=== PATIENT | male | born 1935 | race Caucasian/White ===

== ENCOUNTER 2017-12-17 07:17 | Emergency (ER) | payer MEDICARE, OTHER ==
--- NOTE | 2017-12-17 07:58 | ER Document Report ---
ED Medical Screen (RME) - General Chief Complaint: Fall Injury Stated Complaint: HEAD INJURY Time Seen by Provider: 12/17/17 07:57 Mode of Arrival: Ambulatory Information source: Patient Notes: Patient presents emergency department with reports that he fell out of his recliner while he was sleeping. Patient is on Eliquis. TRAVEL OUTSIDE OF THE [place] IN LAST 30 DAYS: No - Related Data Allergies/Adverse Reactions: piperacillin sodium [From Zosyn] Allergy (Intermediate, Verified 02/22/17 09:02) Generalized rash tazobactam sodium [From Zosyn] Allergy (Intermediate, Verified 02/22/17 09:02) Generalized rash haloperidol [From Haldol] Allergy (Verified 12/17/17 07:20) lorazepam [Lorazepam] Adverse Reaction (Intermediate, Verified 02/22/17 09:02) Confusion Irritability Past Medical History - Past Medical History Cardiac Medical History: Reports: Hx Atrial Fibrillation, Hx Congestive Heart Failure, Hx Hypercholesterolemia, Hx Hypertension Denies: Hx Coronary Artery Disease, Hx Heart Attack Pulmonary Medical History: Reports: Hx COPD, Hx Respiratory Failure Denies: Hx Asthma, Hx Bronchitis, Hx Pneumonia Neurological Medical History: Denies: Hx Cerebrovascular Accident, Hx Seizures Endocrine Medical History: Reports: Hx Diabetes Mellitus Type 1, Hx Diabetes Mellitus Type 2, Hx Hypothyroidism Renal/ Medical History: Denies: Hx Peritoneal Dialysis Malignancy Medical History: Reports Hx Prostate Cancer GI Medical History: Reports: Hx Gastroesophageal Reflux Disease Musculoskeltal Medical History: Reports Hx Arthritis Psychiatric Medical History: Reports: Hx Depression, Hx Post Traumatic Stress Disorder Past Surgical History: Reports: Hx Cardiac Surgery - pacemaker, Hx Pacemaker - Immunizations Hx Diphtheria, Pertussis, Tetanus Vaccination: No History of Influenza Vaccine for 12/2016 - 05/2017 Season: No Physical Exam - Vital signs Vitals: Temp Pulse Resp BP Pulse Ox 98.2 F 100 18 141/97 H 92 12/17/17 07:12/17/17 07:12/17/17 07:12/17/17 07:12/17/17 07:26 Course - Vital Signs Vital signs: Temp Pulse Resp BP Pulse Ox 98.2 F 100 18 141/97 H 92 12/17/17 07:12/17/17 07:12/17/17 07:12/17/17 07:12/17/17 07:26 Doctor's Discharge - Discharge Referrals: SHIRA JOHANSEN MD [Primary Care Provider] - Follow up as needed
--- NOTE | 2017-12-17 08:45 | RADIOLOGY REPORT (SQ) ---
EXAM DESCRIPTION: CT HEAD WITHOUT COMPLETED DATE/TIME: 12/17/2017 8:23 am REASON FOR STUDY: head injury COMPARISON: CT brain 12/15/2014, 08/02/2015, 02/22/2017 TECHNIQUE: Axial images acquired through the brain without intravenous contrast. Images reviewed wi th bone, brain and subdural windows. Additional sagittal and coronal reconstructions were generated. Images stored on PACS. All CT scanners at this facility use dose modulation, iterative reconstruction, and/or weight based d osing when appropriate to reduce radiation dose to as low as reasonably achievable (ALARA). [facility]: Dose Right [facility]: CareDose [facility]: Dose Right [facility]: Teradose 4D [facility]: SpinTheCam RADIATION DOSE: CT Rad equipment meets quality standard of care and radiation dose reduction techniq ues were employed. CTDIvol: 53.2 mGy. DLP: 1044 mGy-cm. mGy. LIMITATIONS: None. FINDINGS: VENTRICLES: Normal size and contour. CEREBRUM: No CT evidence of acute large territory ischemic change, acute intracranial hemorrhage, mas s effect, or midline shift. Moderate to heavy burden small vessel ischemic change in the hemispheric white matter with old lacunar infarcts in the basal ganglia. CEREBELLUM: No masses. No hemorrhage. No alteration of density. No evidence for acute infarction. EXTRAAXIAL SPACES: No fluid collections. No masses. ORBITS AND GLOBE: No intra- or extraconal masses. Post cataract surgery CALVARIUM: No fracture. PARANASAL SINUSES: No fluid or mucosal thickening. SOFT TISSUES: No mass or hematoma. OTHER: No other significant finding. IMPRESSION: No acute changes EVIDENCE OF ACUTE STROKE: NO. COMMENT: Quality ID # [id number]: Final reports with documentation of one or more dose reduction techniques (e.g., Automated exposure control, adjustment of the mA and/or kV according to patient size, use of iterative reconstruction technique) TECHNICAL DOCUMENTATION: JOB ID: [id number] [employer]- All Rights Reserved Reading location - IP/workstation name: [facility]-[email or web address]
--- NOTE | 2017-12-17 08:48 | RADIOLOGY REPORT (SQ) ---
EXAM DESCRIPTION: CT CERVICAL SPINE WITHOUT COMPLETED DATE/TIME: 12/17/2017 8:23 am REASON FOR STUDY: fell out of chair fell out of chair left-sided neck pain after fall COMPARISON: 11/04/2015 CT cervical spine TECHNIQUE: Axial images acquired through the cervical spine without intravenous contrast. Images re viewed with lung, soft tissue and bone windows. Reconstructed coronal and sagittal MPR images review ed. Images stored on PACS. All CT scanners at this facility use dose modulation, iterative reconstruction, and/or weight based d osing when appropriate to reduce radiation dose to as low as reasonably achievable (ALARA). [facility]: Dose Right [facility]: CareDose [facility]: Dose Right [facility]: Teradose 4D [facility]: 36Kr RADIATION DOSE: CT Rad equipment meets quality standard of care and radiation dose reduction techniq ues were employed. CTDIvol: 24.1 mGy. DLP: 455 mGy-cm. mGy. LIMITATIONS: None. FINDINGS: ALIGNMENT: Anatomic. MINERALIZATION: Normal. VERTEBRAL BODIES: No fractures or dislocation. DISCS: Multilevel disc space narrowing with osteophytes. FACETS, LATERAL MASSES, POSTERIOR ELEMENTS: Facet arthropathy. No fractures. No dislocation. No ac [place] findings. HARDWARE: None in the spine. VISUALIZED RIBS: No fractures. LUNG APICES AND SOFT TISSUES: No significant or acute findings. OTHER: No other significant finding. IMPRESSION: CHRONIC DEGENERATIVE CHANGES. NO ACUTE FINDINGS. TECHNICAL DOCUMENTATION: JOB ID: [id number] Quality ID # [id number]: Final reports with documentation of one or more dose reduction techniques (e.g., Au tomated exposure control, adjustment of the mA and/or kV according to patient size, use of iterative reconstruction technique) 2010 [employer]- All Rights Reserved Reading location - IP/workstation name: [facility]-[email or web address]
--- NOTE | 2017-12-17 09:32 | ER Document Report ---
ED Fall - General Chief Complaint: Fall Injury Stated Complaint: HEAD INJURY Time Seen by Provider: 12/17/17 07:57 Mode of Arrival: Ambulatory Information source: Patient TRAVEL OUTSIDE OF THE [place] IN LAST 30 DAYS: No - HPI Notes: Patient is a 82-year-old male that presents to the emergency department for chief complaint of head injury. Patient fell asleep in a chair and fell forward hitting his head on the wall. He does not remember falling out of the chair but has had similar episodes in the past. His states he has bad sleep apnea and frequently falls asleep mid conversation. She states he has had falls out of the chair previously that resulted in rib fracture. Patient has no complaints currently. He denies vision changes, nausea, vomiting, headache, numbness and weakness. He states his last tetanus vaccination was less than 5 years ago. Past Medical History: COPD Past Surgical History: Reviewed in chart Social History: Denies drugs alcohol and tobacco Family History: Reviewed and noncontributory for presenting illness Allergies: Reviewed, see documented allergy list. REVIEW OF SYSTEMS: CONSTITUTIONAL : No fever No chills No diaphoresis No recent illness EENT: No vision changes No congestion No sore throat CARDIOVASCULAR: No chest pain No palpitations RESPIRATORY: No shortness of breath No cough No difficulty breathing GASTROINTESTINAL: No abdominal pain No nausea No vomiting No diarrhea GENITOURINARY: No dysuria No hematuria No difficulty urinating MUSCULOSKELETAL: No back pain No leg pain No arm pain SKIN: No rashes Eyebrow laceration, hand laceration LYMPHATIC: No swollen, enlarged glands. NEUROLOGICAL: No lightheadedness No headache No weakness No paresthesias PSYCHIATRIC: No anxiety No depression PHYSICAL EXAMINATION: Vital signs reviewed, nursing noted reviewed. GENERAL: Well-appearing, well-nourished and in no acute distress. HEAD: Atraumatic, normocephalic. EYES: Eyes appear normal, extraocular movements intact, sclera anicteric, conjunctiva are normal. ENT: nares patent, oropharynx clear without exudates. Moist mucous membranes. NECK: Normal range of motion, supple without lymphadenopathy LUNGS: Breath sounds clear to auscultation bilaterally and equal. No wheezes rales or rhonchi. HEART: Regular rate and rhythm without murmurs ABDOMEN: Soft, nontender, normoactive bowel sounds. No rebound, guarding, or rigidity. No masses appreciated. EXTREMITIES: Nontender, good range of motion, no pitting or edema. NEUROLOGICAL: No focal neurological deficits. Moves all extremities spontaneously Motor and sensory grossly intact on exam. PSYCH: Normal mood, normal affect. SKIN: Warm, Dry, normal turgor. 0.5 cm partial-thickness linear well approximated right eyebrow laceration, 2.0 cm linear partial-thickness well approximated right eyebrow laceration, dorsal right hand between first and second webspace skin tear with no active bleeding - Related data Allergies/Adverse Reactions: piperacillin sodium [From Zosyn] Allergy (Intermediate, Verified 02/22/17 09:02) Generalized rash tazobactam sodium [From Zosyn] Allergy (Intermediate, Verified 02/22/17 09:02) Generalized rash haloperidol [From Haldol] Allergy (Verified 12/17/17 07:20) lorazepam [Lorazepam] Adverse Reaction (Intermediate, Verified 02/22/17 09:02) Confusion Irritability Past Medical History - General Information source: Patient - Social History Smoking Status: Never Smoker Family History: Reviewed & Not Pertinent, CVA Patient has suicidal ideation: No Patient has homicidal ideation: No - Past Medical History Cardiac Medical History: Reports: Hx Atrial Fibrillation, Hx Congestive Heart Failure, Hx Hypercholesterolemia, Hx Hypertension Denies: Hx Coronary Artery Disease, Hx Heart Attack Pulmonary Medical History: Reports: Hx COPD, Hx Respiratory Failure Denies: Hx Asthma, Hx Bronchitis, Hx Pneumonia Neurological Medical History: Denies: Hx Cerebrovascular Accident, Hx Seizures Endocrine Medical History: Reports: Hx Diabetes Mellitus Type 1, Hx Diabetes Mellitus Type 2, Hx Hypothyroidism Renal/ Medical History: Denies: Hx Peritoneal Dialysis Malignancy Medical History: Reports Hx Prostate Cancer GI Medical History: Reports: Hx Gastroesophageal Reflux Disease Musculoskeletal Medical History: Reports Hx Arthritis Psychiatric Medical History: Reports: Hx Depression, Hx Post Traumatic Stress Disorder Past Surgical History: Reports: Hx Cardiac Surgery - pacemaker, Hx Pacemaker - Immunizations Hx Diphtheria, Pertussis, Tetanus Vaccination: No Hx Pneumococcal Vaccination: 03/26/09 Review of Systems - Review of Systems Notes: Dictated Physical Exam - Vital signs Vitals: Temp Pulse Resp BP Pulse Ox 98.2 F 100 18 141/97 H 92 12/17/17 07:26 12/17/17 07:26 12/17/17 07:26 12/17/17 07:26 12/17/17 07:26 - Notes Notes: Dictated Course - Re-evaluation Re-evalutation: 12/17/17 09:30 Vitals reviewed and stable. Patient awake and in no acute distress. He has no focal neurologic deficits. CT brain and cervical spine show no acute injury. His tetanus is up to date. He denies any pain and does not want any medicine for pain. The skin tear on his right hand is not bleeding and was cleaned and dressed by nursing. His 2 lacerations to the right eyebrow are well approximated and not bleeding. They were treated with Dermabond, see procedure note. Patient counseled on closed head injury and return precautions. I do not believe he had a syncopal event requiring further cardiac evaluation. He is able to ambulate without difficulty. He will return for new or worsening symptoms. Discharged home in stable condition. Cervical Spine CT 12/17/17 07:57 IMPRESSION: CHRONIC DEGENERATIVE CHANGES. NO ACUTE FINDINGS. Head CT 12/17/17 07:57 IMPRESSION: No acute changes EVIDENCE OF ACUTE STROKE: NO. - Vital Signs Vital signs: Temp Pulse Resp BP Pulse Ox 98.2 F 100 18 141/97 H 92 12/17/17 07:26 12/17/17 07:26 12/17/17 07:26 12/17/17 07:26 12/17/17 07:26 Discharge - Discharge Clinical Impression: Closed head injury Qualifiers: Encounter type: initial encounter Qualified Code(s): S09.90XA - Unspecified injury of head, initial encounter Laceration of eyebrow, right Qualifiers: Encounter type: initial encounter Qualified Code(s): S01.111A - Laceration without foreign body of right eyelid and periocular area, initial encounter Skin tear of right hand without complication Qualifiers: Encounter type: initial encounter Qualified Code(s): S61.411A - Laceration without foreign body of right hand, initial encounter Condition: Stable Disposition: HOME, SELF-CARE Instructions: Head Injury Precautions ([facility]), Skin Tear ([facility]) Additional Instructions: Please return to the emergency department if you have any worsening, or concern of your symptoms. Please return to the emergency department if you develop chest pain, difficulty breathing, severe abdominal pain, or ongoing vomiting. Please follow-up with your primary care physician in 2-3 days and any other recommended physicians. If prescribed, take all medications as directed. If you have any questions or concerns do not hesitate to return the emergency department for evaluation. Please return immediately if you have any vision changes, headache, vomiting, numbness or weakness or difficulty speaking Referrals: SHIRA JOHANSEN MD [Primary Care Provider] - Follow up as needed
[2017-12-17 09:42] VITALS: BP 147/84
== END 2017-12-17 09:38 | disposition home or self-care (01) ==
LOC: ER 07:17
DX: S09.90XA Unspecified injury of head, initial encounter (principal); S01.111A Laceration without foreign body of right eyelid and periocular area, initial encounter; S61.411A Laceration without foreign body of right hand, initial encounter; W07.XXXA Fall from chair, initial encounter; J44.9 Chronic obstructive pulmonary disease, unspecified; I48.91 Unspecified atrial fibrillation; I50.9 Heart failure, unspecified; E78.00 Pure hypercholesterolemia, unspecified; I11.0 Hypertensive heart disease with heart failure; E11.9 Type 2 diabetes mellitus without complications; Z85.46 Personal history of malignant neoplasm of prostate
CPT/HCPCS: 70450; 72125; 99283

== ENCOUNTER 2018-04-08 18:09 | Inpatient (IN) | payer MEDICARE, OTHER ==
[2018-04-08] MEDS ORDERED: DILTIAZEM HCL INJ 25 MG/5 ML VIAL IV ONE (18:41)
[2018-04-08 18:52] LABS: HEMATOCRIT 38.5 % (37.9-51.0); HEMOGLOBIN 12.9 g/dL (13.5-17.0); INTERNATIONAL RATION (INR) 1.44; MEAN CORPUSCULAR HEMOGLOBIN 27.1 pg (27.0-33.4); MEAN CORPUSCULAR HGB CONC 33.5 g/dL (32.0-36.0); MEAN CORPUSCULAR VOLUME 81 fl (80-97); PLATELET COUNT 272 10^3/uL (150-450); PROTHROMBIN TIME 18.2 SEC (11.4-15.4); RED BLOOD COUNT 4.77 10^6/uL (4.35-5.55); RED CELL DISTRIBUTION WIDTH 14.1 % (11.5-14.0); WHITE BLOOD COUNT 28.7 10^3/uL (4.0-10.5)
[2018-04-08 18:59] LABS: ALANINE AMINOTRANSFERASE 30 U/L (21-72); ALBUMIN 4.4 g/dL (3.5-5.0); ALKALINE PHOSPHATASE 136 U/L (38-126); ANION GAP 15 (5-19); ASPARTATE AMINO TRANSFERASE 37 U/L (17-59); BILIRUBIN,DIRECT 0.4 mg/dL (0.0-0.4); BLOOD UREA NITROGEN 21 mg/dL (7-20); CALCIUM 9.8 mg/dL (8.4-10.2); CARBON DIOXIDE 21 mmol/L (22-30); CHLORIDE 95 mmol/L (98-107); GLUCOSE 211 mg/dL (75-110); POTASSIUM 4.4 mmol/L (3.6-5.0); SODIUM 131.4 mmol/L (137-145); TOTAL PROTEIN 7.6 g/dL (6.3-8.2)
[2018-04-08] MEDS: DILTIAZEM HCL/D5W 125 MG/125 ML RTUINJ IV PRN (19:04)
[2018-04-08] MEDS ORDERED: ONDANSETRON HCL INJ/PF 4 MG/2 ML SDV ONE (19:06)
[2018-04-08] MEDS ORDERED: ONDANSETRON HCL INJ/PF 4 MG/2 ML SDV IV ONE (19:10)
[2018-04-08 19:19] LABS: ABSOLUTE LYMPHOCYTES# (MANUAL) 1.7 10^3/uL (0.5-4.7); BASOPHILS % (MANUAL) 0 % (0-2); EOSINOPHILS % (MANUAL) 0 % (0-6); LYMPHOCYTES % (MANUAL) 6 % (13-45); MONOCYTES % (MANUAL) 7 % (3-13); PLATELET COMMENT ADEQUATE; SEGMENTED NEUTROPHILS % (MAN) 87 % (42-78); TOTAL CELLS COUNTED 100
[2018-04-08] MEDS ORDERED: AZITHROMYCIN INJ 500 MG VIAL IV ONE (19:22)
[2018-04-08] MEDS ORDERED: CEFTRIAXONE INJ 1000 MG VIAL IV ONE (19:23)
[2018-04-08 19:31] LABS: VENOUS BLOOD BASE EXCESS -1.2 mmol/L; VENOUS BLOOD HCO3 20.9 mmol/L (20-32); VENOUS BLOOD PCO2 28.4 mmHg (35-63); VENOUS BLOOD PH 7.49 (7.30-7.42)
[2018-04-08] MEDS ORDERED: MEROPENEM 1 GM VIAL IV ONE (19:50)
[2018-04-08] MEDS ORDERED: ERTAPENEM SODIUM INJ 1 GM VIAL IV ONE (19:59)
--- NOTE | 2018-04-08 20:01 | ER Document Report ---
ED General - General Chief Complaint: Breathing Difficulty Stated Complaint: DIFFICULTY BREATHING Time Seen by Provider: 04/08/18 18:31 Notes: Patient is a 82-year-old male with CHF, atrial fibrillation, COPD that presents to the emergency department for chief complaint of shortness of breath and difficulty breathing. Patient states that this started earlier this evening, became progressively worse to the point that they called EMS to bring him to the emergency department. He wears home oxygen 2-3 L at home, but that was not helping his symptoms, he also wears CPAP at night. Earlier in the week he was having some nausea and vomiting, that has since resolved, but he has had this cough and feeling more short of breath. He has had aspiration pneumonia not long ago. Denies noting any fevers at home, chills, abdominal pain, chest pain, leg swelling, or any other complaints at this time. Past Medical History: COPD, CHF, atrial fibrillation, obstructive sleep apnea, hypertension Past Surgical History: Denies pertinent or recent surgical history Social History: Denies tobacco, alcohol or drug use. Family History: Reviewed and noncontributory for presenting illness Allergies: Reviewed, see documented allergy list. REVIEW OF SYSTEMS: Other than noted above, the 12 point review of systems was reviewed with the patient and were negative, all pertinent findings are included in the HPI. PHYSICAL EXAMINATION: Vital signs reviewed, nursing noted reviewed. GENERAL: Elderly male, in acute respiratory distress HEAD: Atraumatic, normocephalic. EYES: Eyes appear normal, extraocular movements intact, sclera anicteric, conjun ctiva are normal. ENT: nares patent, oropharynx clear without exudates. Moist mucous membranes. NECK: Normal range of motion, supple without lymphadenopathy LUNGS: Diminished lung sounds, crackles noted on the right base, acute respiratory distress, accessory muscle use. HEART: Heart rate tachycardic, irregular rhythm, no audible murmur. ABDOMEN: Soft, nontender, normoactive bowel sounds. No rebound, guarding, or rigidity. No masses appreciated. EXTREMITIES: Nontender, good range of motion, no pitting or edema. NEUROLOGICAL: No focal neurological deficits. Moves all extremities spon taneously Motor and sensory grossly intact on exam. PSYCH: Distressed, but answering questions appropriately. SKIN: Warm, Dry, normal turgor, no rashes or lesions noted on exposed skin TRAVEL OUTSIDE OF THE [place] IN LAST 30 DAYS: No - Related Data Allergies/Adverse Reactions: piperacillin sodium [From Zosyn] Allergy (Intermediate, Verified 02/22/17 09:02) Generalized rash tazobactam sodium [From Zosyn] Allergy (Intermediate, Verified 02/22/17 09:02) Generalized rash haloperidol [From Haldol] Allergy (Verified 12/17/17 07:20) lorazepam [Lorazepam] Adverse Reaction (Intermediate, Verified 02/22/17 09:02) Confusion Irritability Past Medical History - Social History Smoking Status: Unknown if Ever Smoked Family History: Reviewed & Not Pertinent, CVA Patient has suicidal ideation: No Patient has homicidal ideation: No - Past Medical History Cardiac Medical History: Reports: Hx Atrial Fibrillation, Hx Congestive Heart Failure, Hx Hypercholesterolemia, Hx Hypertension Denies: Hx Coronary Artery Disease, Hx Heart Attack Pulmonary Medical History: Reports: Hx COPD, Hx Respiratory Failure Denies: Hx Asthma, Hx Bronchitis, Hx Pneumonia Neurological Medical History: Denies: Hx Cerebrovascular Accident, Hx Seizures Endocrine Medical History: Reports: Hx Diabetes Mellitus Type 1, Hx Diabetes Mellitus Type 2, Hx Hypothyroidism Renal/ Medical History: Denies: Hx Peritoneal Dialysis Malignancy Medical History: Reports Hx Prostate Cancer GI Medical History: Reports: Hx Gastroesophageal Reflux Disease Musculoskeletal Medical History: Reports Hx Arthritis Psychiatric Medical History: Reports: Hx Depression, Hx Post Traumatic Stress Disorder Past Surgical History: Reports: Hx Cardiac Surgery - pacemaker, Hx Pacemaker - Immunizations Hx Diphtheria, Pertussis, Tetanus Vaccination: No Hx Pneumococcal Vaccination: 03/26/09 Physical Exam - Vital signs Vitals: Temp Pulse Resp BP Pulse Ox 98.2 F 140 H 18 116/83 87 L 04/08/18 18:23 04/08/18 18:23 04/08/18 18:23 04/08/18 18:23 04/08/18 18:23 Course - Re-evaluation Re-evalutation: Patient seen and examined vital signs reviewed. Laboratory data and imaging were ordered as appropriate for the patient's presenting symptoms and complaint, with consideration of any critical or life threatening conditions that may be associated with their obtained history and exam as noted above. Patient was treated with BiPAP therapy, as the patient was feeling on nasal cannula, he was hypoxic on 4 L by nasal cannula, which is more than his baseline home oxygen, he was treated empirically with broad-spectrum antibiotics, initially with azithromycin and Rocephin, but patient started to have a localized reaction to the Rocephin, was discontinued and switched to ertapenem. Results were reviewed when available and demonstrated significant leukocytosis of 28,000, chest x-ray consistent with pneumonia in the right lung, lactic acid was 1.7, renal function was normal and at baseline, mild hyponatremia of 131 Patient was treated with IV bolus of Cardizem, and infusion, for his atrial fibrillation with rapid ventricular response, patient continued to be tachycardic, despite increasing the dosing on the Cardizem infusion, and therefore I ordered a dose of IV digoxin, 500 mcg, to help his heart rate. The patient was re-evaluated and was improving but still on BiPAP, and still had mild increased work of breathing, but seemed improved from his initial presentation Evaluation was most consistent with sepsis, likely secondary to pneumonia, acute on chronic respiratory failure with hypoxia, leukocytosis, and hyponatremia. Results were discussed with the patient at this point after careful consideration I feel that that patient should be admitted to the hospital. This was discussed with the patient that it is in the best interest for their care to be admitted for further evaluation and management. Patient agreed with this plan of care. A call was placed to the admitted physician, Dr. Cruz who graciously accepted the patient onto their service. *Note is created using voice recognition software and may contain spelling, sy ntax or grammatical errors. Laboratory 04/08/18 04/08/18 04/08/18 18:34 18:34 18:34 WBC 28.7 H RBC 4.77 Hgb 12.9 L Hct 38.5 MCV 81 MCH 27.1 MCHC 33.5 RDW 14.1 H Plt Count 272 Total Counted 100 Seg Neutrophils % Not Reportable Seg Neuts % (Manual) 87 H Lymphocytes % Not Reportable Lymphocytes % (Manual) 6 L Monocytes % Not Reportable Monocytes % (Manual) 7 Eosinophils % Not Reportable Eosinophils % (Manual) 0 Basophils % Not Reportable Basophils % (Manual) 0 Absolute Neutrophils Not Reportable Abs Neuts (Manual) 25.0 H Absolute Lymphocytes Not Reportable Abs Lymphs (Manual) 1.7 Absolute Monocytes Not Reportable Abs Monocytes (Manual) 2.0 H Absolute Eosinophils Not Reportable Absolute Eos (Manual) 0.0 Absolute Basophils Not Reportable Abs Basophils (Manual) 0.0 Platelet Comment ADEQUATE PT 18.2 H INR 1.44 VBG pH VBG pCO2 VBG HCO3 VBG Base Excess Sodium 131.4 L Potassium 4.4 Chloride 95 L Carbon Dioxide 21 L Anion Gap 15 BUN 21 H Creatinine 0.99 Est GFR ( Amer) > 60 Est GFR (Non-Af Amer) > 60 Glucose 211 H Lactic Acid Calcium 9.8 Total Bilirubin 1.0 Direct Bilirubin 0.4 Neonat Total Bilirubin Not Reportable Neonat Direct Bilirubin Not Reportable Neonat Indirect Bili Not Reportable AST 37 ALT 30 Alkaline Phosphatase 136 H Troponin I Total Protein 7.6 Albumin 4.4 04/08/18 04/08/18 04/08/18 18:34 19:10 19:10 WBC RBC Hgb Hct MCV MCH MCHC RDW Plt Count Total Counted Seg Neutrophils % Seg Neuts % (Manual) Lymphocytes % Lymphocytes % (Manual) Monocytes % Monocytes % (Manual) Eosinophils % Eosinophils % (Manual) Basophils % Basophils % (Manual) Absolute Neutrophils Abs Neuts (Manual) Absolute Lymphocytes Abs Lymphs (Manual) Absolute Monocytes Abs Monocytes (Manual) Absolute Eosinophils Absolute Eos (Manual) Absolute Basophils Abs Basophils (Manual) Platelet Comment PT INR VBG pH 7.49 H VBG pCO2 28.4 L VBG HCO3 20.9 VBG Base Excess -1.2 Sodium Potassium Chloride Carbon Dioxide Anion Gap BUN Creatinine Est GFR ( Amer) Est GFR (Non-Af Amer) Glucose Lactic Acid 1.7 Calcium Total Bilirubin Direct Bilirubin Neonat Total Bilirubin Neonat Direct Bilirubin Neonat Indirect Bili AST ALT Alkaline Phosphatase Troponin I 0.014 Total Protein Albumin Chest X-Ray 04/08/18 18:40 IMPRESSION: No definite acute disease. No significant interval change. - Vital Signs Vital signs: Temp Pulse Resp BP Pulse Ox 98.2 F 140 H 31 H 131/102 H 93 04/08/18 18:23 04/08/18 18:23 04/08/18 20:01 04/08/18 20:00 04/08/18 20:01 - Laboratory Result Diagrams: 04/08/18 18:34 04/08/18 18:34 Laboratory results interpreted by me: 04/08/18 04/08/18 04/08/18 18:34 18:34 18:34 WBC 28.7 H Hgb 12.9 L RDW 14.1 H Seg Neuts % (Manual) 87 H Lymphocytes % (Manual) 6 L Abs Neuts (Manual) 25.0 H Abs Monocytes (Manual) 2.0 H PT 18.2 H VBG pH VBG pCO2 Sodium 131.4 L Chloride 95 L Carbon Dioxide 21 L BUN 21 H Glucose 211 H Alkaline Phosphatase 136 H 04/08/18 19:10 WBC Hgb RDW Seg Neuts % (Manual) Lymphocytes % (Manual) Abs Neuts (Manual) Abs Monocytes (Manual) PT VBG pH 7.49 H VBG pCO2 28.4 L Sodium Chloride Carbon Dioxide BUN Glucose Alkaline Phosphatase - EKG Interpretation by Me Additional EKG results interpreted by me: EKG demonstrates atrial fibrillation with a rapid ventricular response of 139 bpm, normal axis, QTC 463 ms, no evidence of acute ischemia on this EKG, this is compared with prior EKG from 08/09/2015, without significant change. Critical Care Note - Critical Care Note Total time excluding time spent on procedures (mins): 45 Comments: Critical care time 45 minutes exclusive from separate billable procedures for a patient requiring complex medical decision making, and high potential for clinical deterioration. In a patient with acute on chronic respiratory failure requiring BiPAP therapy, Cardizem infusion, and IV digoxin to control his heart rate.. Time spent obtaining history from patient or surrogate, discussions with consultants, development of treatment plan with patient or surrogate, evaluation of patient's response to treatment, examination of patient, ordering and performing treatments and interventions, ordering and review of laboratory studies, re-evaluation of patient's condition, ordering and review of radiographic studies and review of old charts Discharge - Discharge Clinical Impression: Acute and chronic respiratory failure with hypoxia, Atrial fibrillation with RVR, Hyponatremia Sepsis Qualifiers: Sepsis type: sepsis due to unspecified organism Qualified Code(s): A41.9 - Sepsis, unspecified organism Community acquired pneumonia Qualifiers: Laterality: right Lung location: unspecified part of lung Qualified Code(s): J18.9 - Pneumonia, unspecified organism Leukocytosis Qualifiers: Leukocytosis type: unspecified Qualified Code(s): D72.829 - Elevated white blood cell count, unspecified Condition: Serious Disposition: ADMITTED INPATIENT Admitting Provider: Hospitalist - Dr. Cruz Unit Admitted: [facility]
[2018-04-08] MEDS ORDERED: MORPHINE SULFATE 10 MG/ML INJ IV ONE (20:06)
[2018-04-08] MEDS ORDERED: DIGOXIN INJ 0.5 MG/2 ML AMPULE IV ONE (20:15)
--- NOTE | 2018-04-08 20:24 | RADIOLOGY REPORT (SQ) ---
EXAM DESCRIPTION: XR CHEST 1 VIEW COMPLETED DATE/TME: 04/08/2018 18:40 CLINICAL HISTORY: 82 years, Male, SHORTNESS OF BREATH Compared to chest x-ray dated 02/23/2017. Findings: Heart is moderately enlarged. Aortic arch is calcified. Left chest single lead pacemaker. Bibasilar fibrotic changes. No pneumothorax. No acute consolidations. IMPRESSION: No definite acute disease. No significant interval change.
[2018-04-08] MEDS ORDERED: NORMAL SALINE 1000 ML 1,000 ML IV ONE (20:47)
[2018-04-08] MEDS ORDERED: NICOTINE 21 MG/24 HR PATCH.TD24 TD PRN (20:49)
[2018-04-08] MEDS ORDERED: ACETAMINOPHEN 650 MG SUPP.RECT PR PRN (20:49)
[2018-04-08] MEDS ORDERED: ACETAMINOPHEN 325 MG TABLET PO PRN (20:49)
[2018-04-08] MEDS ORDERED: MAG HYDROX/AL HYDROX/SIMETH SUSP 30 ML UDCUP PO PRN (20:49)
[2018-04-08] MEDS ORDERED: MAGNESIUM HYDROXIDE SUSP 30 ML UDCUP PO PRN (20:49)
[2018-04-08] MEDS ORDERED: MORPHINE SULFATE 10 MG/ML INJ IV PRN ×2 (20:49)
[2018-04-08] MEDS ORDERED: NITROGLYCERIN 0.4 MG/TAB 25 TAB/BOTTLE SL PRN (20:49)
[2018-04-08] MEDS ORDERED: ONDANSETRON HCL INJ/PF 4 MG/2 ML SDV IV PRN (20:58)
[2018-04-08] MEDS ORDERED: ONDANSETRON 4 MG TAB.RAPDIS PO PRN (20:58)
[2018-04-08] MEDS ORDERED: DIPHENHYDRAMINE HCL 50 MG/ML VIAL IV ONE (20:59)
[2018-04-08] MEDS ORDERED: ERTAPENEM SODIUM INJ 1 GM VIAL IV SCH (21:00)
[2018-04-08] MEDS: MORPHINE SULFATE 10 MG/ML INJ IV PRN ×2 (21:19→23:21)
[2018-04-08] MEDS: BUDESONIDE NEB 0.5 MG/2 ML AMPUL NEB SCH (21:25)
[2018-04-08] MEDS: ACETYLCYSTEINE 20% SOLN 800 MG/4 ML VIAL.NEB NEB SCH (21:45)
[2018-04-08] MEDS: LEVOFLOXACIN 750 MG/D5W RTU 750 MG/150 ML RTUPB IV SCH (21:45)
[2018-04-08] MEDS ORDERED: HEPARIN SOD (PORCINE) 5,000 UNIT/ML 1 ML SYRINGE SUBCUT SCH (22:00)
[2018-04-08 22:45] LABS: CREATINE KINASE MB 4.17 ng/mL (<4.55); TROPONIN I 0.018 ng/mL
[2018-04-08] MEDS: LEVALBUTEROL HCL NEB 1.25 MG/3 ML AMPUL NEB SCH (23:21)
[2018-04-08] MEDS: METHYLPREDNISOLONE INJ 40 MG/1 ML SDV IV SCH (23:21)
[2018-04-08] MEDS: IPRATROPIUM BROMIDE 0.02% NEB 0.5 MG/2.5 ML AMPUL NEB SCH (23:21)
--- NOTE | 2018-04-09 00:15 | EKG REPORT ---
SEVERITY:- ABNORMAL ECG - ATRIAL FIBRILLATION, V-RATE 108-165 REPOLARIZATION ABNORMALITY, PROB RATE RELATED : Confirmed by: Cherelle Grijalva 09-Apr-2018 00:14:24
[2018-04-09] MEDS ORDERED: CETIRIZINE 10 MG TABLET PO PRN (00:44)
--- NOTE | 2018-04-09 01:37 | PDOC H&P ---
History of Present Illness Admission Date/PCP: SHIRA JOHANSEN MD Patient complains of: Dyspnea History of Present Illness: SIMBA NARAYANAN is a 82 year old male who presented to the emergency room with acute onset progressively worsening dyspnea beginning earlier this evening and worsening to the point of severe at home before calling EMS. He admits that he began having some shortness of breath which progressed to being severe dyspnea at home with associated symptoms of a nonproductive cough, intermittent nausea and occasional vomiting for the last several days. He denies having fever, chills, chest pain, palpitations and edema. He wears oxygen at 2-3 L/min via nasal cannula at home at all times and uses CPAP at night but he received no relief with the use of oxygen today. He admits similar prior episodes due to his COPD, atrial fibrillation or CHF. He has not identified any other aggravating or ameliorating factors for his dyspnea. In the emergency room he was found to have acute respiratory failure with hypoxia requiring the use of BiPAP to maintain an adequate oxygenation. Additionally he was noted to have atrial fibrillation with a rapid ventricular response in the 160s. He was also found to have a 28,000 white blood count. With these findings the patient was admitted to [facility] for further evaluation and treatment. Past Medical History Cardiac Medical History: Reports: Atrial Fibrillation, Congestive Heart Failure, Hyperlipidema, Hypertension Denies: Coronary Artery Disease, DVT, Myocardial Infarction, Pulmonary Embolism Pulmonary Medical History: Reports: Chronic Obstructive Pulmonary Disease (COPD), Respiratory Failure, Sleep Apnea Denies: Asthma, Bronchitis, Pneumonia EENT Medical History: Reports: None Neurological Medical History: Denies: Hemorrhagic CVA, Ischemic CVA, Seizures Endocrine Medical History: Reports: Diabetes Mellitus Type 2, Hypothyroidism Denies: Diabetes Mellitus Type 1, Hyperthyroidism Renal/ Medical History: Denies: Chronic Kidney Disease, Nephrolithiasis Malignancy Medical History: Reports: None GI Medical History: Reports: Gastroesophageal Reflux Disease Denies: Cirrhosis, Hepatitis Musculoskeltal Medical History: Reports: Arthritis Denies: Gout Skin Medical History: Denies: Eczema, Psoriasis Psychiatric Medical History: Reports: Depression, Post Traumatic Stress Disorder, Tobacco Dependency Denies: Alcohol Dependency, Substance Abuse Traumatic Medical History: Reports: None Hematology: Denies: Anemia, Bleeding Tendencies Infectious Medical History: Reports: None Past Surgical History Past Surgical History: Reports: Pacemaker Social History Information Source: Patient Lives with: Spouse/Significant other Smoking Status: Former Smoker Frequency of Alcohol Use: None Hx Recreational Drug Use: No Drugs: None Hx Prescription Drug Abuse: No - Advance Directive Resuscitation Status: Full Code Surrogate healthcare decision maker:: Family History Family History: CVA Parental Family History Reviewed: Yes Children Family History Reviewed: No Sibling(s) Family History Reviewed.: Yes Medication/Allergy Home Medications: Apixaban [Eliquis 5 mg Tablet] 5 mg PO BID 04/08/18 Bupropion HCl [Bupropion HCl Sr] 75 mg PO QPM 04/08/18 Bupropion HCl [Wellbutrin Xl 150 mg 24hr Tablet] 150 mg PO DAILY 04/08/18 Cetirizine HCl [Zyrtec 10 mg Tablet] 10 mg PO DAILYP PRN 04/08/18 Hydrocodone/Acetaminophen [Trent 5-325 mg Tablet] 1 tab PO TIDP PRN 04/08/18 Levothyroxine Sodium [Synthroid 0.15 mg Tablet] 150 mcg PO Q6AM 04/08/18 Lisinopril [Prinivil 5 mg Tablet] 5 mg PO DAILY 04/08/18 Metformin HCl [Glucophage 500 mg Tablet] 1,000 mg PO DAILY 04/08/18 Metoprolol Tartrate [Lopressor 25 mg Tablet] 25 mg PO Q12 04/08/18 Omeprazole 20 mg PO DAILY 04/08/18 Sertraline HCl [Zoloft] 100 mg PO DAILY 04/08/18 Simvastatin [Zocor 20 mg Tablet] 20 mg PO QHS 04/08/18 Tiotropium [place] [Spiriva Handihaler 5 Cap/Kit (18 Mcg/Cap)] 1 cap IH DAILY 04/08/18 Vit C/E/Zn/Coppr/Lutein/Zeaxan [Preservision Areds 2 Softgel] 2 cap PO DAILY 04/08/18 Allergies/Adverse Reactions: piperacillin sodium [From Zosyn] Allergy (Intermediate, Verified 02/22/17 09:02) Generalized rash tazobactam sodium [From Zosyn] Allergy (Intermediate, Verified 02/22/17 09:02) Generalized rash haloperidol [From Haldol] Allergy (Verified 12/17/17 07:20) lorazepam [Lorazepam] Adverse Reaction (Intermediate, Verified 02/22/17 09:02) Confusion Irritability Review of Systems Constitutional: PRESENT: weight loss. ABSENT: chills, fever(s) Eyes: ABSENT: visual disturbances, other - Eye pain Ears: ABSENT: hearing changes, other - Ear pain Nose, Mouth, and Throat: ABSENT: mouth pain, sore throat Cardiovascular: PRESENT: as per HPI, dyspnea on exertion. ABSENT: chest pain, edema, palpitations Respiratory: PRESENT: as per HPI, cough, dyspnea. ABSENT: hemoptysis, sputum Gastrointestinal: PRESENT: as per HPI, nausea, vomiting, other - Anorexia for se veral weeks. ABSENT: abdominal pain, constipation, diarrhea Genitourinary: ABSENT: dysuria, hematuria Musculoskeletal: PRESENT: back pain - Chronic. ABSENT: deformity, joint swelling Integumentary: ABSENT: pruritus, rash Neurological: ABSENT: confusion, convulsions, memory loss Psychiatric: ABSENT: anxiety, depression Endocrine: ABSENT: cold intolerance, heat intolerance Hematologic/Lymphatic: PRESENT: easy bleeding - On blood thinners, easy bruising - On blood thinners Physical Exam Vital Signs: Temp Pulse Resp BP Pulse Ox 98.2 F 140 H 18 116/83 87 L 04/08/18 18:23 04/08/18 18:23 04/08/18 18:23 04/08/18 18:23 04/08/18 18:23 Intake & Output 04/06/18 04/07/18 04/08/18 23:59 23:59 23:59 Weight 90.718 kg General appearance: PRESENT: no acute distress, cooperative, other - On BiPAP Head exam: PRESENT: atraumatic, normocephalic Eye exam: PRESENT: conjunctiva pink, EOMI. ABSENT: scleral icterus Ear exam: PRESENT: normal external ear exam. ABSENT: bleeding, drainage Mouth exam: PRESENT: dry mucosa, neck supple Neck exam: ABSENT: JVD, thyromegaly, tracheal deviation Respiratory exam: PRESENT: decreased breath sounds - Decreased breath sounds throughout all gordon, prolonged expiratory phas - Mildly prolonged expiratory phase, symmetrical, tachypnea, wheezes - Expiratory, other - On BiPAP Cardiovascular exam: PRESENT: clicks, gallop, irregular rhythm - irregularly irregular rate and rhythm, rubs, tachycardia Pulses: PRESENT: normal radial pulses, normal dorsalis pedis pul Vascular exam: PRESENT: normal capillary refill. ABSENT: pallor GI/Abdominal exam: PRESENT: normal bowel sounds, soft Rectal exam: PRESENT: deferred Extremities exam: ABSENT: joint swelling, pedal edema Musculoskeletal exam: ABSENT: deformity, dislocation Neurological exam: PRESENT: alert, oriented to person, oriented to place, oriented to time, oriented to situation, CN II-XII grossly intact. ABSENT: motor sensory deficit Psychiatric exam: PRESENT: appropriate affect, normal mood Skin exam: PRESENT: dry, intact, warm. ABSENT: jaundice, rash, urticaria Results Laboratory Results: 04/08/18 18:34 04/08/18 18:34 04/08/18 04/08/18 04/08/18 18:34 18:34 19:10 WBC 28.7 H RBC 4.77 Hgb 12.9 L Hct 38.5 MCV 81 MCH 27.1 MCHC 33.5 RDW 14.1 H Plt Count 272 Seg Neutrophils % Not Reportable Lymphocytes % Not Reportable Monocytes % Not Reportable Eosinophils % Not Reportable Basophils % Not Reportable Absolute Neutrophils Not Reportable Absolute Lymphocytes Not Reportable Absolute Monocytes Not Reportable Absolute Eosinophils Not Reportable Absolute Basophils Not Reportable VBG pH VBG pCO2 VBG HCO3 VBG Base Excess Sodium 131.4 L Potassium 4.4 Chloride 95 L Carbon Dioxide 21 L Anion Gap 15 BUN 21 H Creatinine 0.99 Est GFR ( Amer) > 60 Est GFR (Non-Af Amer) > 60 Glucose 211 H Lactic Acid 1.7 Calcium 9.8 Total Bilirubin 1.0 AST 37 ALT 30 Alkaline Phosphatase 136 H Total Protein 7.6 Albumin 4.4 04/08/18 19:10 WBC RBC Hgb Hct MCV MCH MCHC RDW Plt Count Seg Neutrophils % Lymphocytes % Monocytes % Eosinophils % Basophils % Absolute Neutrophils Absolute Lymphocytes Absolute Monocytes Absolute Eosinophils Absolute Basophils VBG pH 7.49 H VBG pCO2 28.4 L VBG HCO3 20.9 VBG Base Excess -1.2 Sodium Potassium Chloride Carbon Dioxide Anion Gap BUN Creatinine Est GFR ( Amer) Est GFR (Non-Af Amer) Glucose Lactic Acid Calcium Total Bilirubin AST ALT Alkaline Phosphatase Total Protein Albumin 04/08/18 18:34 Troponin I 0.014 Assessment & Plan - Diagnosis (1) Acute and chronic respiratory failure with hypoxia Is this a current diagnosis for this admission?: Yes Plan: Patient will be continued with airway support utilizing supplemental oxygen and BiPAP or other devices as required. He is a DO NOT RESUSCITATE patient. His respiratory status will be monitored with his vital signs and blood gases as needed during his hospital course. He will given morphine sulfate 2-4 mg IV every 2 hours as needed for pain and this is also available to be used for anxiety or restlessness if needed. (2) Atrial fibrillation with RVR Is this a current diagnosis for this admission?: Yes Plan: Patient will be treated with a Cardizem drip to control his atrial fibrillation. This can be converted to oral Cardizem by his daytime hospitalist if it is successful in controlling his heart rate for the next several hours. (3) COPD (chronic obstructive pulmonary disease) Qualifiers: COPD type: chronic bronchitis Is this a current diagnosis for this admission?: Yes Plan: Patient will be treated with a pulmonary toilet approximating his home therapy. I feel his primary problem with dyspnea is associated with the atrial fibrilla tion and rapid ventricular response. (4) Systemic inflammatory response syndrome (SIRS) Is this a current diagnosis for this admission?: Yes Plan: Patient does meet some criteria for SIRS and that he was tachycardic and tachypneic and had an elevated white blood count of 28,000. He will be observed on an ongoing basis for any further evidence of sepsis and he did receive a initial dose of Invanz in the ER for single agent sepsis coverage. At this time I have converted him to Levaquin as this would be more likely to address any infection he might have in terms of his respiratory tract. Serial CBCs will be obtained to evaluate his white blood count and further evaluations will be performed as required. - Time Time Spent: 30 to 50 Minutes Critical Time spent with patient: Less than 15 minutes Medications reviewed and adjusted accordingly: Yes Anticipated discharge: Home, Home with Homehealth - Inpatient Certification Based on my medical assessment, after consideration of the patient's comorbidities, presenting symptoms, or acuity I expect that the services needed warrant INPATIENT care.: Yes I certify that my determination is in accordance with my understanding of Medicare's requirements for reasonable and necessary INPATIENT services [42 CFR 412.3e].: Yes Medical Necessity: Significant Comorbidiites Make Outpatient Treatment Too Risky, Need Close Monitoring Due to Risk of Patient Decompensation, Need For Continuous Telemetry Monitoring, Need for Nebulizer Therapy and Monitoring of Response, Risk of Complication if Not Cared For in Hospital
[2018-04-09] MEDS: MORPHINE SULFATE 10 MG/ML INJ IV PRN ×3 (02:38→08:18)
[2018-04-09 04:19] LABS: ANION GAP 12 (5-19); BLOOD UREA NITROGEN 23 mg/dL (7-20); CARBON DIOXIDE 20 mmol/L (22-30); CHLORIDE 100 mmol/L (98-107); CHOLESTEROL 59.41 mg/dL (0-200); CREATINE KINASE 277 U/L (55-170); GLUCOSE 195 mg/dL (75-110); POTASSIUM 4.8 mmol/L (3.6-5.0); SODIUM 132.2 mmol/L (137-145); TRIGLYCERIDES 48 mg/dL (<150)
[2018-04-09 04:22] LABS: HEMATOCRIT 35.2 % (37.9-51.0); HEMOGLOBIN 11.9 g/dL (13.5-17.0); MEAN CORPUSCULAR HEMOGLOBIN 27.5 pg (27.0-33.4); MEAN CORPUSCULAR HGB CONC 33.8 g/dL (32.0-36.0); MEAN CORPUSCULAR VOLUME 81 fl (80-97); PLATELET COUNT 238 10^3/uL (150-450); RED BLOOD COUNT 4.32 10^6/uL (4.35-5.55); RED CELL DISTRIBUTION WIDTH 14.4 % (11.5-14.0); WHITE BLOOD COUNT 28.3 10^3/uL (4.0-10.5)
[2018-04-09 04:31] LABS: CREATINE KINASE MB 5.26 ng/mL (<4.55); TROPONIN I 0.018 ng/mL
[2018-04-09 04:33] LABS: DIRECT LDL < 30 mg/dL (<100)
[2018-04-09 04:37] LABS: FREE T3 2.99 pg/mL (2.77-5.27); FREE T4 (FREE THYROXINE) 1.97 ng/dL (0.78-2.19)
[2018-04-09 04:51] LABS: THYROID STIMULATING HORMONE 4.03 uIU/mL (0.47-4.68)
[2018-04-09 04:52] LABS: ABSOLUTE LYMPHOCYTES# (MANUAL) 0.6 10^3/uL (0.5-4.7); ABSOLUTE MONOCYTES # (MANUAL) 2.8 10^3/uL (0.1-1.4); ABSOLUTE NEUTROPHILS# (MANUAL) 24.9 10^3/uL (1.7-8.2); BAND NEUTROPHILS % (MANUAL) 1 % (3-5); BASOPHILS % (MANUAL) 0 % (0-2); EOSINOPHILS % (MANUAL) 0 % (0-6); LYMPHOCYTES % (MANUAL) 2 % (13-45); MONOCYTES % (MANUAL) 10 % (3-13); SEGMENTED NEUTROPHILS % (MAN) 87 % (42-78); TOTAL CELLS COUNTED 100; TOXIC GRANULATION 1+; TOXIC VACUOLATION PRESENT
[2018-04-09 04:53] LABS: ANISOCYTOSIS SLIGHT; PLATELET CLUMPS PRESENT; PLATELET COMMENT ADEQUATE; PLATELET GIANT PRESENT
[2018-04-09] MEDS ORDERED: LEVOTHYROXINE SODIUM 0.15 MG TABLET ONE (05:37)
[2018-04-09] MEDS ORDERED: BUPROPION HCL 100 MG TABLET ONE (05:38)
[2018-04-09] MEDS: METHYLPREDNISOLONE INJ 40 MG/1 ML SDV IV SCH ×2 (05:55→13:22)
[2018-04-09] MEDS: LEVOTHYROXINE SODIUM 0.15 MG TABLET PO SCH (05:56)
[2018-04-09] MEDS: DILTIAZEM HCL/D5W 125 MG/125 ML RTUINJ IV PRN (05:59)
[2018-04-09] MEDS ORDERED: BUPROPION HCL 100 MG TABLET PO SCH (06:00)
[2018-04-09] MEDS: LEVALBUTEROL HCL NEB 1.25 MG/3 ML AMPUL NEB SCH ×3 (08:11→23:49)
[2018-04-09] MEDS: BUDESONIDE NEB 0.5 MG/2 ML AMPUL NEB SCH ×2 (08:11→21:01)
[2018-04-09] MEDS: IPRATROPIUM BROMIDE 0.02% NEB 0.5 MG/2.5 ML AMPUL NEB SCH ×3 (08:11→23:49)
[2018-04-09] MEDS: ACETYLCYSTEINE 20% SOLN 800 MG/4 ML VIAL.NEB NEB SCH ×2 (08:16→21:00)
[2018-04-09] MEDS ORDERED: ERTAPENEM SODIUM 1 GM in NORMAL SALINE 50 ML IV SCH (10:00)
[2018-04-09] MEDS ORDERED: BUPROPION HCL 75 MG TABLET PO SCH ×2 (10:00)
[2018-04-09 10:36] LABS: CREATINE KINASE MB 12.1 ng/mL (<4.55); TROPONIN I 0.013 ng/mL
[2018-04-09] MEDS: SERTRALINE HCL 50 MG TABLET PO SCH (11:08)
[2018-04-09] MEDS: DOCUSATE SODIUM 100 MG CAPSULE PO SCH ×2 (11:08→18:36)
[2018-04-09] MEDS: METFORMIN HCL 500 MG TABLET PO SCH (11:09)
[2018-04-09] MEDS: APIXABAN 5 MG TABLET PO SCH ×2 (11:09→18:36)
[2018-04-09] MEDS: LISINOPRIL 5 MG TABLET PO SCH (11:09)
[2018-04-09] MEDS: METOPROLOL SUCCINATE 50 MG TAB.SR.24H PO SCH (11:10)
[2018-04-09] MEDS: TIOTROPIUM BROMIDE DPI 5 CAP/KIT (18 MCG/CAP) IH SCH (12:05)
[2018-04-09] MEDS: BUPROPION HCL 75 MG TABLET PO SCH ×2 (14:13→22:16)
[2018-04-09] MEDS: HYDROCODONE/ACETAMINOPHEN 5-325 MG TABLET PO PRN (14:13)
--- NOTE | 2018-04-09 17:05 | PDOC PROGRESS REPORT ---
Subjective Progress Note for:: 04/09/18 Subjective:: This is 82 years old male patient brought with chief complaint of shortness of breath. Patient has underlying chronic respiratory failure due to O2 dependent COPD. Patient's initial workup shows leukocytosis of 28,000 and urine culture is positive for gram-negative rods. Patient has been getting Levaquin. This morning I seen patient resting in bed and his heart rate is ranging between 90 and 100 and he has been getting Cardizem drip Reason For Visit: PNEUMONIA,AFIB WITH RVR Physical Exam Vital Signs: Temp Pulse Resp BP Pulse Ox 97.8 F 103 H 27 H 110/54 L 90 L 04/09/18 15:07 04/09/18 15:07 04/09/18 15:07 04/09/18 15:07 04/09/18 15:07 Intake & Output 04/08/18 04/09/18 04/10/18 06:59 06:59 06:59 Intake Total 1271 125 Balance 1271 125 Weight 90.718 kg Results Laboratory Results: 04/09/18 03:54 04/09/18 03:54 04/08/18 04/08/18 04/08/18 18:34 18:34 19:10 WBC 28.7 H RBC 4.77 Hgb 12.9 L Hct 38.5 MCV 81 MCH 27.1 MCHC 33.5 RDW 14.1 H Plt Count 272 Seg Neutrophils % Not Reportable Lymphocytes % Not Reportable Monocytes % Not Reportable Eosinophils % Not Reportable Basophils % Not Reportable Absolute Neutrophils Not Reportable Absolute Lymphocytes Not Reportable Absolute Monocytes Not Reportable Absolute Eosinophils Not Reportable Absolute Basophils Not Reportable VBG pH VBG pCO2 VBG HCO3 VBG Base Excess Sodium 131.4 L Potassium 4.4 Chloride 95 L Carbon Dioxide 21 L Anion Gap 15 BUN 21 H Creatinine 0.99 Est GFR ( Amer) > 60 Est GFR (Non-Af Amer) > 60 Glucose 211 H Lactic Acid 1.7 Calcium 9.8 Magnesium Total Bilirubin 1.0 AST 37 ALT 30 Alkaline Phosphatase 136 H Total Protein 7.6 Albumin 4.4 Triglycerides Cholesterol LDL Cholesterol Direct VLDL Cholesterol HDL Cholesterol TSH Free T4 Free T3 pg/mL 04/08/18 04/09/18 04/09/18 19:10 03:54 03:54 WBC 28.3 H RBC 4.32 L Hgb 11.9 L Hct 35.2 L MCV 81 MCH 27.5 MCHC 33.8 RDW 14.4 H Plt Count 238 Seg Neutrophils % Not Reportable Lymphocytes % Not Reportable Monocytes % Not Reportable Eosinophils % Not Reportable Basophils % Not Reportable Absolute Neutrophils Not Reportable Absolute Lymphocytes Not Reportable Absolute Monocytes Not Reportable Absolute Eosinophils Not Reportable Absolute Basophils Not Reportable VBG pH 7.49 H VBG pCO2 28.4 L VBG HCO3 20.9 VBG Base Excess -1.2 Sodium 132.2 L Potassium 4.8 Chloride 100 Carbon Dioxide 20 L Anion Gap 12 BUN 23 H Creatinine 1.06 Est GFR ( Amer) > 60 Est GFR (Non-Af Amer) > 60 Glucose 195 H Lactic Acid Calcium 9.0 Magnesium 1.4 L Total Bilirubin AST ALT Alkaline Phosphatase Total Protein Albumin Triglycerides 48 Cholesterol 59.41 LDL Cholesterol Direct < 30 VLDL Cholesterol 10.0 HDL Cholesterol 34 L TSH Free T4 Free T3 pg/mL 04/09/18 03:54 WBC RBC Hgb Hct MCV MCH MCHC RDW Plt Count Seg Neutrophils % Lymphocytes % Monocytes % Eosinophils % Basophils % Absolute Neutrophils Absolute Lymphocytes Absolute Monocytes Absolute Eosinophils Absolute Basophils VBG pH VBG pCO2 VBG HCO3 VBG Base Excess Sodium Potassium Chloride Carbon Dioxide Anion Gap BUN Creatinine Est GFR ( Amer) Est GFR (Non-Af Amer) Glucose Lactic Acid Calcium Magnesium Total Bilirubin AST ALT Alkaline Phosphatase Total Protein Albumin Triglycerides Cholesterol LDL Cholesterol Direct VLDL Cholesterol HDL Cholesterol TSH 4.03 Free T4 1.97 Free T3 pg/mL 2.99 04/08/18 04/08/18 04/08/18 18:34 22:00 22:00 Creatine Kinase 182 H CK-MB (CK-2) 4.17 Troponin I 0.014 0.018 NT-Pro-B Natriuret Pep 04/09/18 04/09/18 04/09/18 03:54 03:54 09:43 Creatine Kinase 277 H 1024 H CK-MB (CK-2) 5.26 H Troponin I 0.018 NT-Pro-B Natriuret Pep 8930 H 04/09/18 09:43 Creatine Kinase CK-MB (CK-2) 12.10 H Troponin I 0.013 NT-Pro-B Natriuret Pep Impressions: Chest X-Ray 04/08/18 18:40 IMPRESSION: No definite acute disease. No significant interval change. Assessment & Plan - Diagnosis (1) Acute and chronic respiratory failure with hypoxia Is this a current diagnosis for this admission?: Yes Plan: We will keep him on supplemental oxygen, bronchodilator and Solu-Medrol. (2) Atrial fibrillation with RVR Is this a current diagnosis for this admission?: Yes Plan: Currently his rate is controlled and will maintain him with Cardizem 180 mg p.o. daily. (3) Leukocytosis Qualifiers: Leukocytosis type: unspecified Qualified Code(s): D72.829 - Elevated white blood cell count, unspecified Is this a current diagnosis for this admission?: Yes Plan: May be related to his complicated UTI. Will check his CBC in a.m. (4) Complicated UTI (urinary tract infection) Is this a current diagnosis for this admission?: Yes Plan: Urine culture positive for gram-negative anders. Continue Levaquin (5) Diastolic CHF exacerbation Is this a current diagnosis for this admission?: Yes Plan: Patient has BNP of 8900. He has been getting Lasix. His last echo was done in 2014 and the ejection fraction is 55%. Echo to evaluate the status of his left ventricle. (6) Hypothyroidism Qualifiers: Hypothyroidism type: acquired Qualified Code(s): E03.9 - Hypothyroidism, unspecified Is this a current diagnosis for this admission?: Yes Plan: Continue Synthroid
[2018-04-09] MEDS ORDERED: DILTIAZEM HCL 180 MG CAPSULE.CR PO ONE (18:12)
[2018-04-09] MEDS ORDERED: METHYLPREDNISOLONE INJ 40 MG/1 ML SDV IV SCH (18:30)
[2018-04-09] MEDS: DILTIAZEM HCL 180 MG CAPSULE.CR PO SCH (19:45)
[2018-04-09] MEDS: ALBUTEROL SULFATE 0.083% NEB 2.5 MG/3 ML AMPUL NEB PRN (21:01)
[2018-04-09] MEDS: SIMVASTATIN 10 MG TABLET PO SCH (22:15)
[2018-04-09] MEDS: LEVOFLOXACIN 750 MG/D5W RTU 750 MG/150 ML RTUPB IV SCH (22:16)
[2018-04-09] MEDS ORDERED: METHYLPREDNISOLONE INJ 125 MG/2 ML SDV ONE (22:29)
[2018-04-09] MEDS ORDERED: METHYLPREDNISOLONE INJ 40 MG/1 ML SDV IV ONE (22:45)
[2018-04-09 23:55] LABS: APPEARANCE,URINE CLOUDY; BILIRUBIN,URINE NEGATIVE (NEGATIVE); COLOR,URINE AMBER; GLUCOSE, URINE 50 mg/dL (NEGATIVE); KETONES,URINE NEGATIVE (NEGATIVE); LEUKOCYTE ESTERASE,URINE NEGATIVE (NEGATIVE); NITRITE,URINE NEGATIVE (NEGATIVE); PROTEIN,URINE 100 mg/dL (NEGATIVE); URINE SPECIFIC GRAVITY 1.021; UROBILINOGEN,URINE NEGATIVE mg/dL (<2.0)
[2018-04-10] MEDS: HYDROCODONE/ACETAMINOPHEN 5-325 MG TABLET PO PRN ×3 (00:53→22:36)
[2018-04-10] MEDS: LEVOTHYROXINE SODIUM 0.15 MG TABLET PO SCH (05:31)
[2018-04-10] MEDS: METHYLPREDNISOLONE INJ 40 MG/1 ML SDV IV SCH ×3 (05:31→22:37)
[2018-04-10] MEDS: BUPROPION HCL 75 MG TABLET PO SCH ×3 (05:32→22:38)
[2018-04-10 06:19] LABS: HEMATOCRIT 34.3 % (37.9-51.0); HEMOGLOBIN 11.6 g/dL (13.5-17.0); MEAN CORPUSCULAR HEMOGLOBIN 27.3 pg (27.0-33.4); MEAN CORPUSCULAR HGB CONC 33.7 g/dL (32.0-36.0); MEAN CORPUSCULAR VOLUME 81 fl (80-97); PLATELET COUNT 218 10^3/uL (150-450); RED BLOOD COUNT 4.24 10^6/uL (4.35-5.55); RED CELL DISTRIBUTION WIDTH 14.3 % (11.5-14.0); WHITE BLOOD COUNT 19.8 10^3/uL (4.0-10.5)
[2018-04-10 06:36] LABS: ANION GAP 11 (5-19); BLOOD UREA NITROGEN 45 mg/dL (7-20); CALCIUM 9.2 mg/dL (8.4-10.2); CARBON DIOXIDE 22 mmol/L (22-30); CHLORIDE 100 mmol/L (98-107); GLUCOSE 173 mg/dL (75-110); POTASSIUM 4.3 mmol/L (3.6-5.0); SODIUM 132.7 mmol/L (137-145)
[2018-04-10 06:43] LABS: ABSOLUTE LYMPHOCYTES# (MANUAL) 0.6 10^3/uL (0.5-4.7); ABSOLUTE NEUTROPHILS# (MANUAL) 18.2 10^3/uL (1.7-8.2); BAND NEUTROPHILS % (MANUAL) 2 % (3-5); BASOPHILS % (MANUAL) 0 % (0-2); EOSINOPHILS % (MANUAL) 0 % (0-6); LYMPHOCYTES % (MANUAL) 3 % (13-45); MONOCYTES % (MANUAL) 5 % (3-13); SEGMENTED NEUTROPHILS % (MAN) 90 % (42-78); TOTAL CELLS COUNTED 100
[2018-04-10 06:44] LABS: PLATELET COMMENT ADEQUATE; RBC MORPHOLOGY COMMENT NORMO-CYTIC/CHROMIC; TOXIC VACUOLATION PRESENT
[2018-04-10] MEDS: ACETYLCYSTEINE 20% SOLN 800 MG/4 ML VIAL.NEB NEB SCH ×2 (07:35→19:38)
[2018-04-10] MEDS: IPRATROPIUM BROMIDE 0.02% NEB 0.5 MG/2.5 ML AMPUL NEB SCH ×2 (07:35→16:39)
[2018-04-10] MEDS: LEVALBUTEROL HCL NEB 1.25 MG/3 ML AMPUL NEB SCH ×2 (07:36→16:39)
[2018-04-10] MEDS: BUDESONIDE NEB 0.5 MG/2 ML AMPUL NEB SCH ×2 (07:36→19:38)
[2018-04-10] MEDS: APIXABAN 5 MG TABLET PO SCH ×2 (09:15→17:51)
[2018-04-10] MEDS: DOCUSATE SODIUM 100 MG CAPSULE PO SCH ×2 (09:16→17:51)
[2018-04-10] MEDS: LISINOPRIL 5 MG TABLET PO SCH (09:16)
[2018-04-10] MEDS: METOPROLOL SUCCINATE 50 MG TAB.SR.24H PO SCH (09:16)
[2018-04-10] MEDS: SERTRALINE HCL 50 MG TABLET PO SCH (09:16)
[2018-04-10] MEDS: METFORMIN HCL 500 MG TABLET PO SCH (09:17)
[2018-04-10] MEDS: TIOTROPIUM BROMIDE DPI 5 CAP/KIT (18 MCG/CAP) IH SCH (09:25)
--- NOTE | 2018-04-10 17:22 | PDOC PROGRESS REPORT ---
Subjective Progress Note for:: 04/10/18 Subjective:: Mr. Rouse is a very pleasant 82 years old male patient presented with chief complaint of dyspnea. Patient has multiple comorbidities including atrial fibrillation, CHF, COPD, hyperlipidemia, diabetes mellitus, hypertension, obstructive sleep apnea, hypothyroidism and history of prostate CA. at presentation patient was reportedly hypoxemic and tachycardic. Patient has been managed with Cardizem for his A. fib with RVR. His blood culture reported posit antwan for gram positive throat due to non-perfringens Clostridium difficile. Patient has been getting Levaquin plus metronidazole. This morning I seen patient resting in bed and getting BiPAP through full mask. He reports this is shortness of breath relatively improved. Reason For Visit: PNEUMONIA,AFIB WITH RVR Physical Exam Vital Signs: Temp Pulse Resp BP Pulse Ox 97.2 F 90 20 125/64 93 04/10/18 16:16 04/10/18 16:39 04/10/18 16:39 04/10/18 16:16 04/10/18 16:39 Intake & Output 04/09/18 04/10/18 04/11/18 06:59 06:59 06:59 Intake Total 1271 725 118 Output Total 650 Balance 1271 75 118 Weight 90.718 kg 87.2 kg General appearance: PRESENT: mild distress Eye exam: PRESENT: conjunctiva pink Mouth exam: PRESENT: dry mucosa Neck exam: ABSENT: carotid bruit, JVD, lymphadenopathy, thyromegaly Respiratory exam: PRESENT: decreased breath sounds Cardiovascular exam: PRESENT: irregular rhythm GI/Abdominal exam: PRESENT: normal bowel sounds, soft. ABSENT: distended, guarding, mass, organolmegaly, rebound, tenderness Neurological exam: PRESENT: alert, awake, oriented to time, oriented to situation Results Laboratory Results: 04/10/18 05:55 04/10/18 05:55 04/09/18 04/10/18 04/10/18 22:05 05:55 05:55 WBC 19.8 H RBC 4.24 L Hgb 11.6 L Hct 34.3 L MCV 81 MCH 27.3 MCHC 33.7 RDW 14.3 H Plt Count 218 Seg Neutrophils % Not Reportable Lymphocytes % Not Reportable Monocytes % Not Reportable Eosinophils % Not Reportable Basophils % Not Reportable Absolute Neutrophils Not Reportable Absolute Lymphocytes Not Reportable Absolute Monocytes Not Reportable Absolute Eosinophils Not Reportable Absolute Basophils Not Reportable Sodium 132.7 L Potassium 4.3 Chloride 100 Carbon Dioxide 22 Anion Gap 11 BUN 45 H Creatinine 1.25 Est GFR ( Amer) > 60 Est GFR (Non-Af Amer) 56 L Glucose 173 H Calcium 9.2 Magnesium 2.0 Urine Color CHITRA Urine Appearance CLOUDY Urine pH 5.0 Ur Specific [place] 1.021 Urine Protein 100 H Urine Glucose (UA) 50 H Urine Ketones NEGATIVE Urine Blood MODERATE H Urine Nitrite NEGATIVE Ur Leukocyte Esterase NEGATIVE Urine WBC (Auto) 2 Urine RBC (Auto) 0 04/08/18 19:10 Blood Blood Culture - Final Clostridium Sp.not Perfringens 04/08/18 18:34 Blood Blood Culture - Final Clostridium Sp.not Perfringens 04/08/18 04/08/18 04/08/18 18:34 22:00 22:00 Creatine Kinase 182 H CK-MB (CK-2) 4.17 Troponin I 0.014 0.018 NT-Pro-B Natriuret Pep 04/09/18 04/09/18 04/09/18 03:54 03:54 09:43 Creatine Kinase 277 H 1024 H CK-MB (CK-2) 5.26 H Troponin I 0.018 NT-Pro-B Natriuret Pep 8930 H 04/09/18 09:43 Creatine Kinase CK-MB (CK-2) 12.10 H Troponin I 0.013 NT-Pro-B Natriuret Pep Impressions: Chest X-Ray 04/08/18 18:40 IMPRESSION: No definite acute disease. No significant interval change. Assessment & Plan - Diagnosis (1) Gram-positive bacteremia Is this a current diagnosis for this admission?: Yes Plan: Due to non-perfringens Clostridium difficile. Patient empirically started on metronidazole. (2) Acute and chronic respiratory failure with hypoxia Is this a current diagnosis for this admission?: Yes Plan: We will keep him on supplemental oxygen, bronchodilator and Solu-Medrol. (3) Atrial fibrillation with RVR Is this a current diagnosis for this admission?: Yes Plan: Currently his rate is controlled and will maintain him with Cardizem 180 mg p.o. daily. (4) Leukocytosis Qualifiers: Leukocytosis type: unspecified Qualified Code(s): D72.829 - Elevated white blood cell count, unspecified Is this a current diagnosis for this admission?: Yes Plan: Trending down (5) Complicated UTI (urinary tract infection) Is this a current diagnosis for this admission?: Yes Plan: Urine culture positive for gram-negative anders. Continue Levaquin (6) Diastolic CHF exacerbation Is this a current diagnosis for this admission?: Yes Plan: Patient has BNP of 8900. He has been getting Lasix. His last echo was done in 2014 and the ejection fraction is 55%. Echo to evaluate the status of his left ventricle. (7) Hypothyroidism Qualifiers: Hypothyroidism type: acquired Qualified Code(s): E03.9 - Hypothyroidism, unspecified Is this a current diagnosis for this admission?: Yes Plan: Continue Synthroid (8) Prostate CA survivor Is this a current diagnosis for this admission?: Yes Plan: In remission (9) Obstructive sleep apnea Is this a current diagnosis for this admission?: Yes Plan: Continue CPAP
[2018-04-10] MEDS: METRONIDAZOLE 500 MG/NS RTU 500 MG/100 ML RTUPB IV SCH ×2 (17:47→21:00)
[2018-04-10] MEDS: DILTIAZEM HCL 180 MG CAPSULE.CR PO SCH (17:51)
[2018-04-10] MEDS ORDERED: DEXTROSE 50%-WATER SYRINGE 25 GM/50 ML DOSE IV PRN (18:30)
[2018-04-10] MEDS ORDERED: GLUCAGON,HUMAN RECOMB 1 MG INJ IM PRN (18:30)
[2018-04-10] MEDS ORDERED: DEXTROSE 40% GEL 15 GM TUBE X 2 PO PRN (18:30)
[2018-04-10] MEDS ORDERED: DEXTROSE 50%-WATER SYRINGE 12.5 GM/25 ML DOSE IV PRN (18:30)
[2018-04-10] MEDS ORDERED: DEXTROSE 40% GEL 15 GM TUBE PO PRN (18:30)
[2018-04-10] MEDS: ALBUTEROL SULFATE 0.083% NEB 2.5 MG/3 ML AMPUL NEB PRN (19:38)
[2018-04-10] MEDS: LEVOFLOXACIN 750 MG/D5W RTU 750 MG/150 ML RTUPB IV SCH (22:31)
[2018-04-10] MEDS: SIMVASTATIN 10 MG TABLET PO SCH (22:37)
[2018-04-10] MEDS: INSULIN LISPRO 100 UNIT/ML 3 ML VIAL SUBCUT PRN (23:45)
[2018-04-11] MEDS: LEVALBUTEROL HCL NEB 1.25 MG/3 ML AMPUL NEB SCH ×4 (00:22→23:58)
[2018-04-11] MEDS: IPRATROPIUM BROMIDE 0.02% NEB 0.5 MG/2.5 ML AMPUL NEB SCH ×4 (00:22→23:58)
[2018-04-11] MEDS: METRONIDAZOLE 500 MG/NS RTU 500 MG/100 ML RTUPB IV SCH ×4 (00:36→17:34)
[2018-04-11] MEDS: LEVOTHYROXINE SODIUM 0.15 MG TABLET PO SCH (05:30)
[2018-04-11] MEDS: METHYLPREDNISOLONE INJ 40 MG/1 ML SDV IV SCH ×3 (05:30→21:38)
[2018-04-11] MEDS: BUPROPION HCL 75 MG TABLET PO SCH ×3 (05:30→21:38)
[2018-04-11 06:03] LABS: HEMATOCRIT 35.2 % (37.9-51.0); HEMOGLOBIN 11.8 g/dL (13.5-17.0); MEAN CORPUSCULAR HEMOGLOBIN 27.4 pg (27.0-33.4); MEAN CORPUSCULAR HGB CONC 33.6 g/dL (32.0-36.0); MEAN CORPUSCULAR VOLUME 82 fl (80-97); PLATELET COUNT 287 10^3/uL (150-450); RED BLOOD COUNT 4.32 10^6/uL (4.35-5.55); RED CELL DISTRIBUTION WIDTH 14.5 % (11.5-14.0); WHITE BLOOD COUNT 17.1 10^3/uL (4.0-10.5)
[2018-04-11 06:27] LABS: ANION GAP 14 (5-19); CALCIUM 9.3 mg/dL (8.4-10.2); CARBON DIOXIDE 19 mmol/L (22-30); CHLORIDE 101 mmol/L (98-107); GLUCOSE 153 mg/dL (75-110); POTASSIUM 4.4 mmol/L (3.6-5.0)
[2018-04-11 06:30] LABS: ABSOLUTE LYMPHOCYTES# (MANUAL) 0.7 10^3/uL (0.5-4.7); ABSOLUTE MONOCYTES # (MANUAL) 0.5 10^3/uL (0.1-1.4); ABSOLUTE NEUTROPHILS# (MANUAL) 15.9 10^3/uL (1.7-8.2); ANISOCYTOSIS SLIGHT; BASOPHILS % (MANUAL) 0 % (0-2); EOSINOPHILS % (MANUAL) 0 % (0-6); LYMPHOCYTES % (MANUAL) 4 % (13-45); MONOCYTES % (MANUAL) 3 % (3-13); PLATELET CLUMPS PRESENT; PLATELET COMMENT ADEQUATE; PLATELET LARGE PRESENT; POLYCHROMASIA SLIGHT; SCHISTOCYTES SLIGHT; SEGMENTED NEUTROPHILS % (MAN) 93 % (42-78); TOTAL CELLS COUNTED 100; TOXIC GRANULATION 1+; TOXIC VACUOLATION PRESENT
[2018-04-11 06:31] LABS: BLOOD UREA NITROGEN 68 mg/dL (7-20)
[2018-04-11] MEDS: BUDESONIDE NEB 0.5 MG/2 ML AMPUL NEB SCH ×2 (08:44→21:06)
[2018-04-11] MEDS: ACETYLCYSTEINE 20% SOLN 800 MG/4 ML VIAL.NEB NEB SCH ×2 (08:48→21:07)
[2018-04-11] MEDS ORDERED: FUROSEMIDE INJ/PF 40 MG/4 ML SDV IV ONE (10:35)
[2018-04-11] MEDS: TIOTROPIUM BROMIDE DPI 5 CAP/KIT (18 MCG/CAP) IH SCH (10:58)
[2018-04-11] MEDS: APIXABAN 5 MG TABLET PO SCH ×2 (10:58→17:49)
[2018-04-11] MEDS: LISINOPRIL 5 MG TABLET PO SCH (10:58)
[2018-04-11] MEDS: SERTRALINE HCL 50 MG TABLET PO SCH (10:59)
[2018-04-11] MEDS: DOCUSATE SODIUM 100 MG CAPSULE PO SCH ×2 (10:59→17:34)
[2018-04-11] MEDS: METOPROLOL SUCCINATE 50 MG TAB.SR.24H PO SCH (10:59)
[2018-04-11] MEDS: METFORMIN HCL 500 MG TABLET PO SCH (10:59)
[2018-04-11] MEDS: INSULIN LISPRO 100 UNIT/ML 3 ML VIAL SUBCUT PRN ×2 (12:35→21:37)
--- NOTE | 2018-04-11 15:34 | PDOC PROGRESS REPORT ---
Subjective Subjective:: Mr. Rouse is a very pleasant 82 years old male patient presented with chief complaint of dyspnea. Patient has multiple comorbidities including atrial fibrillation, CHF, COPD, hyperlipidemia, diabetes mellitus, hypertension, obstructive sleep apnea, hypothyroidism and history of prostate CA. at presentation patient was reportedly hypoxemic and tachycardic. Patient has been managed with Cardizem for his A. fib with RVR. His blood culture reported positive for gram positive rods which is non-perfringens Clostridium difficile. Patient has been getting Levaquin plus metronidazole. Today patient reported she feels much better. I seen him while he transferring himself from bed to recliner. No new complaint. Patient may benefit from short-term acute rehab placement. Reason For Visit: PNEUMONIA,AFIB WITH RVR Physical Exam Vital Signs: Temp Pulse Resp BP Pulse Ox 97.4 F 99 20 119/55 L 96 04/11/18 12:01 04/11/18 12:01 04/11/18 12:01 04/11/18 12:01 04/11/18 12:01 Intake & Output 04/10/18 04/11/18 04/12/18 06:59 06:59 06:59 Intake Total 725 1160 691 Output Total 650 275 310 Balance 75 885 381 Weight 87.2 kg 86.8 kg General appearance: PRESENT: no acute distress Head exam: PRESENT: atraumatic Eye exam: PRESENT: conjunctiva pink Mouth exam: PRESENT: moist Neck exam: ABSENT: carotid bruit, JVD, lymphadenopathy, thyromegaly Respiratory exam: PRESENT: crackles GI/Abdominal exam: PRESENT: normal bowel sounds, soft. ABSENT: distended, guarding, mass, organolmegaly, rebound, tenderness Extremities exam: PRESENT: full ROM. ABSENT: calf tenderness, clubbing, pedal edema Neurological exam: PRESENT: alert, awake, oriented to person, oriented to place, oriented to time, oriented to situation. ABSENT: motor sensory deficit Results Laboratory Results: 04/11/18 05:50 04/11/18 05:50 04/11/18 04/11/18 05:50 05:50 WBC 17.1 H RBC 4.32 L Hgb 11.8 L Hct 35.2 L MCV 82 MCH 27.4 MCHC 33.6 RDW 14.5 H Plt Count 287 Seg Neutrophils % Not Reportable Lymphocytes % Not Reportable Monocytes % Not Reportable Eosinophils % Not Reportable Basophils % Not Reportable Absolute Neutrophils Not Reportable Absolute Lymphocytes Not Reportable Absolute Monocytes Not Reportable Absolute Eosinophils Not Reportable Absolute Basophils Not Reportable Sodium 134.0 L Potassium 4.4 Chloride 101 Carbon Dioxide 19 L Anion Gap 14 BUN 68 H D Creatinine 1.39 H Est GFR ( Amer) 59 L Est GFR (Non-Af Amer) 49 L Glucose 153 H Calcium 9.3 Magnesium 2.5 H 04/09/18 22:05 Catheterized Urine Urine Culture - Final Mixed Urogenital Camille 04/08/18 19:10 Blood Blood Culture - Final Clostridium Sp.not Perfringens 04/08/18 18:34 Blood Blood Culture - Final Clostridium Sp.not Perfringens 04/08/18 04/08/18 04/08/18 18:34 22:00 22:00 Creatine Kinase 182 H CK-MB (CK-2) 4.17 Troponin I 0.014 0.018 NT-Pro-B Natriuret Pep 04/09/18 04/09/18 04/09/18 03:54 03:54 09:43 Creatine Kinase 277 H 1024 H CK-MB (CK-2) 5.26 H Troponin I 0.018 NT-Pro-B Natriuret Pep 8930 H 04/09/18 09:43 Creatine Kinase CK-MB (CK-2) 12.10 H Troponin I 0.013 NT-Pro-B Natriuret Pep Impressions: Chest X-Ray 04/08/18 18:40 IMPRESSION: No definite acute disease. No significant interval change. Assessment & Plan - Diagnosis (1) Gram-positive bacteremia Is this a current diagnosis for this admission?: Yes Plan: Due to non-perfringens Clostridium difficile. Patient empirically started on metronidazole. (2) Acute and chronic respiratory failure with hypoxia Is this a current diagnosis for this admission?: Yes Plan: We will keep him on supplemental oxygen, bronchodilator and Solu-Medrol. (3) Atrial fibrillation with RVR Is this a current diagnosis for this admission?: Yes Plan: Currently his rate is controlled and will maintain him with Cardizem 180 mg p.o. daily. (4) Leukocytosis Qualifiers: Leukocytosis type: unspecified Qualified Code(s): D72.829 - Elevated white blood cell count, unspecified Is this a current diagnosis for this admission?: Yes Plan: Has been trending down (5) Complicated UTI (urinary tract infection) Is this a current diagnosis for this admission?: Yes Plan: Urine culture positive for gram-negative anders. Continue Levaquin (6) Diastolic CHF exacerbation Is this a current diagnosis for this admission?: Yes Plan: Patient has BNP of 8900. He has been getting Lasix. His last echo was done in 2014 and the ejection fraction is 55%. Echo to evaluate the status of his left ventricle. (7) Hypothyroidism Qualifiers: Hypothyroidism type: acquired Qualified Code(s): E03.9 - Hypothyroidism, unspecified Is this a current diagnosis for this admission?: Yes Plan: Continue Synthroid (8) Prostate CA survivor Is this a current diagnosis for this admission?: Yes Plan: In remission (9) Obstructive sleep apnea Is this a current diagnosis for this admission?: Yes Plan: Continue CPAP
[2018-04-11] MEDS: HYDROCODONE/ACETAMINOPHEN 5-325 MG TABLET PO PRN (17:34)
[2018-04-11] MEDS: DILTIAZEM HCL 180 MG CAPSULE.CR PO SCH (17:34)
[2018-04-11] MEDS: ALBUTEROL SULFATE 0.083% NEB 2.5 MG/3 ML AMPUL NEB PRN (21:06)
[2018-04-11] MEDS: LEVOFLOXACIN 750 MG/D5W RTU 750 MG/150 ML RTUPB IV SCH (21:37)
[2018-04-11] MEDS: SIMVASTATIN 10 MG TABLET PO SCH (21:38)
--- NOTE | 2018-04-11 23:22 | XCELERA REPORT ---
[address] [address] Transthoracic Echocardiogram Report Name: SIMBA NARAYANAN Age: 82 yrs Gender: Male : 1935 Patient Status: Inpatient Patient Location: [address] [place] [address] Study Date: 04/10/2018 06:23 PM Height: 69 in Weight: 192 lb BSA: 2.0 m2 Procedure: A two-dimensional transthoracic echocardiogram with color flow and Doppler was performed. The study was technically difficult with many images being suboptimal in quality. Images were not obtained from all of the standard acoustic windows due to the limited scope of the study. Reason For Study: CHF History: CHF. Ordering Physician: CLARK SCHILLING Performed By: Shabana Soliz Interpretation Summary The left ventricle is normal in size. There is normal left ventricular wall thickness. No True apical 2 chamber views obtained.Hence cannot comment on the apical anterior , the basal anterior, the basal inferior and apical inferior cristobal.The mid anterior , the mid inferior and the rest of the LV cristobal contract normally. .LVEF is normal and is greater than 60% in the limited views. Doppler measurements suggest normal left ventricular diastolic function The left atrial size is normal. There is no evidence of mitral valve prolapse. There is no mitral valve stenosis. There is no aortic valve stenosis There is a mild amount of aortic regurgitation There is no tricuspid stenosis. There is a trace amount of tricuspid regurgitation Right ventricular systolic pressure is normal. RVSP is 29 mm of Hg , with RA mean of 10. MMode/2D Measurements & Calculations RVDd: 3.4 cm LVIDd: 5.5 cm FS: 32.1 % Ao root diam: 3.3 cm IVSd: 1.1 cm LVIDs: 3.7 cm EDV(Teich): 148.0 ml Ao root area: 8.4 cm2 LVPWd: 1.1 cm ESV(Teich): 59.6 ml LA dimension: 4.6 cm EF(Teich): 59.7 % Doppler Measurements & Calculations MV E max esperanza: MV P1/2t max esperanza: AI max esperanza: LV V1 max P.6 cm/sec 99.9 cm/sec 309.1 cm/sec 2.8 mmHg MV A max esperanza: MV P1/2t: 54.2 msec AI max P.6 mmHg LV V1 max: 47.9 cm/sec MVA(P1/2t): 4.1 cm2 AI dec slope: 82.9 cm/sec MV E/A: 1.4 MV dec slope: 160.8 cm/sec2 AI P1/2t: 563.0 msec 539.7 cm/sec2 MV dec time: 0.23 sec PA V2 max: TR max esperanza: AV P1/2t-pr_phl: MV P1/2t-pr_phl: 134.4 cm/sec 215.8 cm/sec 566.2 msec 54.2 msec PA max PG: TR max P.6 mmHg AV Vmax-pr_phl: 7.2 mmHg 135.3 cm/sec Left Ventricle The left ventricle is normal in size. There is normal left ventricular wall thickness. No True apical 2 chamber views obtained.Hence cannot comment on the apical anterior , the basal anterior, the basal inferior and apical inferior cristobal.The mid anterior , the mid inferior and the rest of the LV cristobal contract normally. .LVEF is normal and is greater than 60% in the limited views. Doppler measurements suggest normal left ventricular diastolic function. Right Ventricle The right ventricle is not well visualized secondary to technical limitations. Atria Right atrium not well visualized secondary to technical limitations. The left atrial size is normal. Mitral Valve There is no evidence of mitral valve prolapse. There is no mitral valve stenosis. There is a mild amount of mitral regurgitation. Aortic Valve There is no aortic valve stenosis. There is a mild amount of aortic regurgitation. Tricuspid Valve There is no tricuspid stenosis. There is a trace amount of tricuspid regurgitation. Right ventricular systolic pressure is normal. RVSP is 29 mm of Hg , with RA mean of 10. : CLARK SCHILLING > Suyapa Willard
[2018-04-12] MEDS: METRONIDAZOLE 500 MG/NS RTU 500 MG/100 ML RTUPB IV SCH ×4 (00:13→17:50)
[2018-04-12] MEDS: LEVOTHYROXINE SODIUM 0.15 MG TABLET PO SCH (05:13)
[2018-04-12] MEDS: BUPROPION HCL 75 MG TABLET PO SCH ×3 (05:13→22:56)
[2018-04-12] MEDS: METHYLPREDNISOLONE INJ 40 MG/1 ML SDV IV SCH ×3 (05:13→22:56)
[2018-04-12] MEDS: ACETYLCYSTEINE 20% SOLN 800 MG/4 ML VIAL.NEB NEB SCH ×2 (07:51→19:33)
[2018-04-12] MEDS: IPRATROPIUM BROMIDE 0.02% NEB 0.5 MG/2.5 ML AMPUL NEB SCH ×2 (07:51→18:23)
[2018-04-12] MEDS: LEVALBUTEROL HCL NEB 1.25 MG/3 ML AMPUL NEB SCH ×2 (07:52→18:24)
[2018-04-12] MEDS: BUDESONIDE NEB 0.5 MG/2 ML AMPUL NEB SCH ×2 (07:52→19:33)
[2018-04-12] MEDS: INSULIN LISPRO 100 UNIT/ML 3 ML VIAL SUBCUT PRN ×4 (09:01→22:57)
[2018-04-12 09:18] LABS: HEMATOCRIT 36.1 % (37.9-51.0); HEMOGLOBIN 12.2 g/dL (13.5-17.0); MEAN CORPUSCULAR HEMOGLOBIN 27.6 pg (27.0-33.4); MEAN CORPUSCULAR HGB CONC 33.8 g/dL (32.0-36.0); MEAN CORPUSCULAR VOLUME 82 fl (80-97); PLATELET COUNT 315 10^3/uL (150-450); RED BLOOD COUNT 4.41 10^6/uL (4.35-5.55); RED CELL DISTRIBUTION WIDTH 14.5 % (11.5-14.0); WHITE BLOOD COUNT 9.6 10^3/uL (4.0-10.5)
[2018-04-12 09:35] LABS: ANION GAP 11 (5-19); BLOOD UREA NITROGEN 66 mg/dL (7-20); CALCIUM 9.5 mg/dL (8.4-10.2); CARBON DIOXIDE 23 mmol/L (22-30); CHLORIDE 102 mmol/L (98-107); GLUCOSE 215 mg/dL (75-110); POTASSIUM 5.1 mmol/L (3.6-5.0); SODIUM 135.9 mmol/L (137-145)
[2018-04-12 10:08] LABS: ABSOLUTE LYMPHOCYTES# (MANUAL) 0.2 10^3/uL (0.5-4.7); ABSOLUTE MONOCYTES # (MANUAL) 0.8 10^3/uL (0.1-1.4); ABSOLUTE NEUTROPHILS# (MANUAL) 8.6 10^3/uL (1.7-8.2); BASOPHILS % (MANUAL) 0 % (0-2); EOSINOPHILS % (MANUAL) 0 % (0-6); HYPOCHROMASIA SLIGHT; LYMPHOCYTES % (MANUAL) 2 % (13-45); METAMYELOCYTES % (MANUAL) 2 % (0); MONOCYTES % (MANUAL) 8 % (3-13); PLATELET COMMENT ADEQUATE; POLYCHROMASIA SLIGHT; SEGMENTED NEUTROPHILS % (MAN) 88 % (42-78); TOTAL CELLS COUNTED 100; TOXIC GRANULATION SLIGHT
[2018-04-12] MEDS: DOCUSATE SODIUM 100 MG CAPSULE PO SCH ×2 (10:11→17:45)
[2018-04-12] MEDS: TIOTROPIUM BROMIDE DPI 5 CAP/KIT (18 MCG/CAP) IH SCH (10:18)
[2018-04-12] MEDS: METFORMIN HCL 500 MG TABLET PO SCH (10:19)
[2018-04-12] MEDS: METOPROLOL SUCCINATE 50 MG TAB.SR.24H PO SCH (10:19)
[2018-04-12] MEDS: FUROSEMIDE INJ/PF 20 MG/2 ML SDV IV SCH (10:19)
[2018-04-12] MEDS: LISINOPRIL 5 MG TABLET PO SCH (10:19)
[2018-04-12] MEDS: SERTRALINE HCL 50 MG TABLET PO SCH (10:19)
[2018-04-12] MEDS: APIXABAN 5 MG TABLET PO SCH ×2 (10:20→17:49)
[2018-04-12] MEDS: DILTIAZEM HCL 180 MG CAPSULE.CR PO SCH (17:49)
--- NOTE | 2018-04-12 18:45 | Progress Note ---
Provider Note Provider Note: ID Consult Note Asked to review patient's chart by Pharmacy. Pt not seen or examined. Reviewed VS, provider reports, imaging reports, labs. Mr Raymundo is an 82 year old man with PMH including CHF, s/p PPM placement, AF, LOURDES, HLD, DM, and COPD on oxygen who presented on 04/08/18 with acute onset progressively worsening SOB, associated with nonproductive cough, intermittent N&V. On exam, pt was tachycardic but afebrile, with hypoxia on admission requiring NIV, and decreased breath sounds throughout, mildly prolonged espiratory phase, irregularly irregular rhythm, soft abdomen. Initial labs included high WBC count 28.7, elevated BUN, low chloride, sodium and bicarb. Blood cultures on admission grew Clostridium species one bottle of both sets. Imaging included CXR single view on 04/08 that showed basilar fibrotic changes but no acute consolidation. Pt was empirically given Levaquin and Flagyl. Impression/Recommendations sepsis due to clostridial bacteremia - Source of this is unclear but, in an elderly pt without other localizing findings to account for the bacteremia, this is presumably GI in origin; although pt had no abdominal pain on admission, consider imaging the abdomen to make sure there is no collection such as a diverticular abscess that might require either drainage or a longer course of antibiotics - Continuing Levaquin and Flagyl is acceptable pending further identification of source, which is currently assumed to be enteric - If no abscess found, a microperforation is still possible but should not require a long course of therapy (e.g. 10 days in total). PO Levaquin and PO Flagyl have good bioavailability, and such a course does not need to be IV in i ts entirety. Can switch if pt is improving and PO intake is consistent. Jose Raul Martinez MD [facility] pager [phone]
--- NOTE | 2018-04-12 18:51 | PDOC PROGRESS REPORT ---
Subjective Progress Note for:: 04/12/18 Subjective:: saw patient this morning- he was laying in bed- his is at bedside. he's on 3L O2 at this time- denies chest pain, abdominal pain, n/v or dizziness. Reason For Visit: PNEUMONIA,AFIB WITH RVR Physical Exam Vital Signs: Temp Pulse Resp BP Pulse Ox 97.3 F 87 18 117/65 98 04/12/18 12:17 04/12/18 14:00 04/12/18 12:17 04/12/18 12:17 04/12/18 12:17 Intake & Output 04/11/18 04/12/18 04/13/18 06:59 06:59 06:59 Intake Total 1160 2014 691 Output Total 275 1310 175 Balance 885 704 516 Weight 191 lb 5.78 oz 190 lb 0.615 oz General appearance: PRESENT: no acute distress Head exam: PRESENT: atraumatic, normocephalic Eye exam: PRESENT: EOMI, PERRLA. ABSENT: conjunctival injection, scleral icterus Ear exam: PRESENT: normal external ear exam Mouth exam: PRESENT: tongue midline Neck exam: ABSENT: tracheal deviation Respiratory exam: PRESENT: clear to auscultation ebony, symmetrical Cardiovascular exam: PRESENT: irregular rhythm, +S1, +S2 GI/Abdominal exam: PRESENT: normal bowel sounds, soft. ABSENT: tenderness Extremities exam: ABSENT: pedal edema Neurological exam: PRESENT: alert, awake, oriented to person, oriented to place, oriented to time, oriented to situation, CN II-XII grossly intact Skin exam: PRESENT: dry, warm Results Laboratory Results: 04/12/18 08:30 04/12/18 08:30 04/12/18 04/12/18 08:30 08:30 WBC 9.6 RBC 4.41 Hgb 12.2 L Hct 36.1 L MCV 82 MCH 27.6 MCHC 33.8 RDW 14.5 H Plt Count 315 Seg Neutrophils % Not Reportable Lymphocytes % Not Reportable Monocytes % Not Reportable Eosinophils % Not Reportable Basophils % Not Reportable Absolute Neutrophils Not Reportable Absolute Lymphocytes Not Reportable Absolute Monocytes Not Reportable Absolute Eosinophils Not Reportable Absolute Basophils Not Reportable Sodium 135.9 L Potassium 5.1 H Chloride 102 Carbon Dioxide 23 Anion Gap 11 BUN 66 H Creatinine 1.34 H Est GFR ( Amer) > 60 Est GFR (Non-Af Amer) 51 L Glucose 215 H Calcium 9.5 Magnesium 2.2 04/08/18 04/08/18 04/08/18 18:34 22:00 22:00 Creatine Kinase 182 H CK-MB (CK-2) 4.17 Troponin I 0.014 0.018 NT-Pro-B Natriuret Pep 04/09/18 04/09/18 04/09/18 03:54 03:54 09:43 Creatine Kinase 277 H 1024 H CK-MB (CK-2) 5.26 H Troponin I 0.018 NT-Pro-B Natriuret Pep 8930 H 04/09/18 09:43 Creatine Kinase CK-MB (CK-2) 12.10 H Troponin I 0.013 NT-Pro-B Natriuret Pep Impressions: Chest X-Ray 04/08/18 18:40 IMPRESSION: No definite acute disease. No significant interval change. Assessment & Plan - Diagnosis (1) Acute and chronic respiratory failure with hypoxia Is this a current diagnosis for this admission?: Yes (2) Atrial fibrillation with RVR Is this a current diagnosis for this admission?: Yes (3) Complicated UTI (urinary tract infection) Is this a current diagnosis for this admission?: Yes (4) Gram-positive bacteremia Is this a current diagnosis for this admission?: Yes (5) Hyponatremia Is this a current diagnosis for this admission?: Yes (6) Hypothyroidism Qualifiers: Hypothyroidism type: acquired Qualified Code(s): E03.9 - Hypothyroidism, unspecified Is this a current diagnosis for this admission?: Yes (7) Coronary artery disease Qualifiers: Coronary Disease-Associated Artery/Lesion type: beaver artery Associated angina: angina presence unspecified Is this a current diagnosis for this admission?: Yes (8) Diabetes mellitus Qualifiers: Diabetes mellitus type: type 2 Diabetes mellitus supervisor intermediates insulin use: without supervisor intermediates use Diabetes mellitus complication status: without complication Qualified Code(s): E11.9 - Type 2 diabetes mellitus without complications Is this a current diagnosis for this admission?: Yes - Plan Summary Plan Summary: acute on chronic respiratory failure- back to baseline 3L O2- CPAP at night - feeling better with his breathing. UTI- started on levaquin on 04/08- today is day 5- will stop after today Bacteremia- BCx from 04/08 grew clostridium, NOT pefringens- not sure what to make of it. started on Flagyl on 04/11. but repeat BCx on 04/11 is negative. WBC count has resolved. HTN- c/w lisinopril CAD- c/w metoprolol and eliquis
[2018-04-12] MEDS: ALBUTEROL SULFATE 0.083% NEB 2.5 MG/3 ML AMPUL NEB PRN (19:33)
[2018-04-12] MEDS: SIMVASTATIN 10 MG TABLET PO SCH (22:57)
[2018-04-12] MEDS: HYDROCODONE/ACETAMINOPHEN 5-325 MG TABLET PO PRN (22:57)
[2018-04-12] MEDS: LEVOFLOXACIN 750 MG/D5W RTU 750 MG/150 ML RTUPB IV SCH (22:57)
[2018-04-13] MEDS: METRONIDAZOLE 500 MG/NS RTU 500 MG/100 ML RTUPB IV SCH ×2 (00:07→05:50)
[2018-04-13] MEDS: LEVALBUTEROL HCL NEB 1.25 MG/3 ML AMPUL NEB SCH ×2 (00:36→07:58)
[2018-04-13] MEDS: IPRATROPIUM BROMIDE 0.02% NEB 0.5 MG/2.5 ML AMPUL NEB SCH ×2 (00:36→07:58)
[2018-04-13 05:24] VITALS: BP 137/68
[2018-04-13] MEDS: LEVOTHYROXINE SODIUM 0.15 MG TABLET PO SCH (05:50)
[2018-04-13] MEDS: METHYLPREDNISOLONE INJ 40 MG/1 ML SDV IV SCH (05:50)
[2018-04-13] MEDS: BUPROPION HCL 75 MG TABLET PO SCH (05:50)
--- NOTE | 2018-04-13 05:54 | RADIOLOGY REPORT (SQ) ---
EXAM DESCRIPTION: CT ABDOMEN PELVIS WITHOUT IV CONTRAST COMPLETED DATE/TME: 04/12/2018 00:00 CLINICAL HISTORY: 82 years Male, looking for source of abdominal infection Comparison: 08/09/15 Technique: No contrast. Coronal and sagittal reformat. This exam was performed according to our departmental dose-optimization program, which includes automated exposure control, adjustment of the mA and/or kV according to patient size and/or use of iterative reconstruction technique.[facility]: Dose Right [facility]: CareDose [facility]: Dose Right [facility]: Teradose 4D [facility]: [employer] LIMITATIONS: None Findings: 8 x 5.6 x 3.2 cm phlegmonous inflamed collection at the right adrenal fossa. No normal right adrenal gland identified. Increased nodular lesions of the left adrenal fossa include two adjacent 2.8 and 1.9 cm tissue density lesions and a 2.4 cm fat containing lesion. Moderate patchy airspace opacity of the right lower lobe. Moderate fat streaking does scar of the right paracentral pelvis. Cholelithiasis. Subacute/chronic left posterior 11th and 10th rib fractures, relatively new compared with prior exam from July 201516. Grade 2 L5 anterolisthesis with bilateral spondylolyses. 1.9 cm lytic lesion of the L2 vertebral body with mild anterior pathologic compression fracture. No evidence of appendicitis. Likely normal appendix partially discerned. Cardiac stimulator lead. Colonic diverticulosis. Coronary arterial calcification. Atherosclerotic vascular disease. Old granulomatous disease. 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 Unenhanced lower thorax, abdominopelvic structures, and musculoskeleton appear otherwise grossly unremarkable. Impression: 1. An indeterminate 8 cm collection with gas bubbles at the right adrenal fossa may indicate a phlegmon. No communication with the nonopacified GI tract is identified. Increased left adrenal lesions measuring up to 2.8 cm each. New 1.9 cm lytic lesion of the L2 vertebral body with mild anterior pathologic compression fracture. Differential etiologies include infectious, inflammatory, and malignancy/metastasis processes. Consider further evaluation with IV and oral contrast CT of the abdomen and pelvis and/or Surgical consulation. 2. Moderate right lower lobar pneumonia. 3. Geronimo pattern of the left femoral head, chronic. 4. Cholelithiasis. 5. .Subacute/chronic left posterior 11th and 10th rib fractures, relatively new compared with prior exam from July 2015.
[2018-04-13 06:24] LABS: ANION GAP 12 (5-19); BLOOD UREA NITROGEN 58 mg/dL (7-20); CALCIUM 9.8 mg/dL (8.4-10.2); CARBON DIOXIDE 24 mmol/L (22-30); CHLORIDE 103 mmol/L (98-107); GLUCOSE 216 mg/dL (75-110); POTASSIUM 4.4 mmol/L (3.6-5.0); SODIUM 139.4 mmol/L (137-145)
[2018-04-13] MEDS: ACETYLCYSTEINE 20% SOLN 800 MG/4 ML VIAL.NEB NEB SCH (07:57)
[2018-04-13] MEDS: BUDESONIDE NEB 0.5 MG/2 ML AMPUL NEB SCH (07:58)
[2018-04-13] MEDS: INSULIN LISPRO 100 UNIT/ML 3 ML VIAL SUBCUT PRN (08:39)
[2018-04-13] MEDS: TIOTROPIUM BROMIDE DPI 5 CAP/KIT (18 MCG/CAP) IH SCH (10:31)
[2018-04-13] MEDS: METFORMIN HCL 500 MG TABLET PO SCH (10:31)
[2018-04-13] MEDS: FUROSEMIDE INJ/PF 20 MG/2 ML SDV IV SCH (10:31)
[2018-04-13] MEDS: DOCUSATE SODIUM 100 MG CAPSULE PO SCH (10:32)
[2018-04-13] MEDS: LISINOPRIL 5 MG TABLET PO SCH (10:32)
[2018-04-13] MEDS: APIXABAN 5 MG TABLET PO SCH (10:32)
[2018-04-13] MEDS: SERTRALINE HCL 50 MG TABLET PO SCH (10:32)
[2018-04-13] MEDS: METOPROLOL SUCCINATE 50 MG TAB.SR.24H PO SCH (10:33)
[2018-04-13] MEDS ORDERED: MORPHINE SULFATE 10 MG/ML INJ ONE (11:40)
[2018-04-13] MEDS ORDERED: METOPROLOL TARTRATE PF/INJ 5 MG/5 ML SDV IV ONE (11:44)
[2018-04-13 12:00] LABS: ARTERIAL BLOOD H2CO3 0.68 mmol/L (1.05-1.35); ARTERIAL BLOOD HCO3 11.8 mmol/L (20-24); ARTERIAL BLOOD O2 SATURATION 95.6 % (94-98); ARTERIAL BLOOD PCO2 22.5 mmHg (35-45); ARTERIAL BLOOD PH 7.34 (7.35-7.45); ARTERIAL BLOOD PO2 80.8 mmHg (80-100); ARTERIAL BLOOD TOTAL CO2 12.5 mmol/L (23-27); HEMATOCRIT 36.7 % (37.9-51.0); HEMOGLOBIN 11.8 g/dL (13.5-17.0); MEAN CORPUSCULAR HEMOGLOBIN 27.3 pg (27.0-33.4); MEAN CORPUSCULAR HGB CONC 32.3 g/dL (32.0-36.0); MEAN CORPUSCULAR VOLUME 85 fl (80-97); PLATELET COUNT 436 10^3/uL (150-450); RED BLOOD COUNT 4.33 10^6/uL (4.35-5.55); RED CELL DISTRIBUTION WIDTH 14.6 % (11.5-14.0); WHITE BLOOD COUNT 16.2 10^3/uL (4.0-10.5)
[2018-04-13 12:02] LABS: ARTERIAL BLOOD FIO2 6L
[2018-04-13 12:18] LABS: ALANINE AMINOTRANSFERASE 46 U/L (21-72); ALBUMIN 3.2 g/dL (3.5-5.0); ALKALINE PHOSPHATASE 91 U/L (38-126); ANION GAP 17 (5-19); ASPARTATE AMINO TRANSFERASE 40 U/L (17-59); BILIRUBIN,DIRECT 0.2 mg/dL (0.0-0.4); BILIRUBIN,TOTAL 0.5 mg/dL (0.2-1.3); BLOOD UREA NITROGEN 51 mg/dL (7-20); CALCIUM 9.7 mg/dL (8.4-10.2); CARBON DIOXIDE 18 mmol/L (22-30); CHLORIDE 102 mmol/L (98-107); GLUCOSE 365 mg/dL (75-110); SODIUM 136.5 mmol/L (137-145); TOTAL PROTEIN 5.9 g/dL (6.3-8.2)
--- NOTE | 2018-04-13 12:51 | RADIOLOGY REPORT (SQ) ---
EXAM DESCRIPTION: CHEST SINGLE VIEW COMPLETED DATE/TIME: 04/13/2018 12:24 pm REASON FOR STUDY: cracked rib, pain COMPARISON: 04/08/2018 TECHNIQUE: Single frontal radiographic view of the chest acquired. NUMBER OF VIEWS: One view. LIMITATIONS: Expiratory lung volumes. FINDINGS: LUNGS AND PLEURA: No pneumothorax. Similar interstitial changes in the lung bases, right greater than left, slightly more confluent than the prior study though likely related to expiratory l juancarlos volumes. No significant pleural effusion. MEDIASTINUM AND HILAR STRUCTURES: Stable. HEART AND VASCULAR STRUCTURES: Stable. BONES: No acute findings. HARDWARE: None in the chest. OTHER: No other significant finding. IMPRESSION: Similar interstitial changes in the lung bases, right greater than left, slightly more confluent than the prior study though likely related to expiratory lung volumes. No significant pleu ral effusion. TECHNICAL DOCUMENTATION: JOB ID: [id number] [id number] [employer]- All Rights Reserved Reading location - IP/workstation name: [email or web address]
--- NOTE | 2018-04-13 17:19 | Death Summary ---
Summary Date : 04/13/18 Time of :: 12:36 Autopsy: No Resuscitation Status: Comfort Measures Only - Final Diagnosis (1) Acute and chronic respiratory failure with hypoxia Is this a current diagnosis for this admission?: Yes (2) Atrial fibrillation with RVR Is this a current diagnosis for this admission?: Yes (3) Complicated UTI (urinary tract infection) Is this a current diagnosis for this admission?: Yes (4) Gram-positive bacteremia Is this a current diagnosis for this admission?: Yes (5) Hyponatremia Is this a current diagnosis for this admission?: Yes (6) Hypothyroidism Is this a current diagnosis for this admission?: Yes (7) Coronary artery disease Is this a current diagnosis for this admission?: Yes (8) Diabetes mellitus Is this a current diagnosis for this admission?: Yes Hospital Course:: Patient was initially admitted for acute on chronic respiratory failure on supplemental oxygen and BiPAP. He was also given as needed morphine for pain. He was found to have atrial fibrillation with RVR but hence started on a Cardizem drip. He did have an elevated white blood cell count and started on Levaquin for possible infection of the lower respiratory tract. Later he was transitioned from Cardizem drip to Cardizem p.o. daily. Urine culture came back positive and he was continued with Levaquin. His urine culture was positive for mixed urogenital swetha. Due to history of heart failure and echocardiogram was performed to reevaluate his function. He was found to have preserved EF. Later his blood culture turned out to be positive for Clostridium not perfringens species. Flagyl was started. Infectious disease, remotely, also evaluated the patient regarding his blood cultures and recommended continuing on Levaquin and Flagyl. I assumed care of patient on 04/12/18 When I met him yesterday he was still on 3 L O2 which is his baseline oxygen need at home. He told me he was feeling better. For his UTI he had already completed 5 days of Levaquin I had stopped it. He was continued on Flagyl as per recommendation for infectious disease. I saw patient this morning and he told me that he was feeling fine and had no complaints. We discussed about his management and he verbalized understanding. His was not at bedside when I rounded on him. This morning he did not complain to me about his chest pain, shortness of breath, abdominal pain, nausea vomiting or dizziness. I told him to call me when his is at bedside so we can discuss imaging findings. I told him that I need to discuss some significant finding in his CT abdomen pelvis but I would like to discuss it together with him and his so we can review all the results. Unfortunately I received a call from the floor that patient had fallen and I went to evaluate patient. Upon my arrival there were 2 nurses at bedside with the patient laying on the bed and very agitated and on nasal cannula. Per nursing patient was found on the bathroom floor without his oxygen. I asked patient what happened and he told me that he had to have a BM and so he was in the bathroom. Per nursing his telemetry reading showed heart rate of greater than 160 and so they went to see what was going on and found him on the bathroom and they brought him back to bed. Per nursing he had hit his head and the scalp was slightly erythematous although there are no open wounds noted grossly. Patient is alert but agitated and very anxious. I asked for vitals but we were not able to get a proper vital as patient is moving his arms and not sitting still. I asked nursing to get a mask since patient was breathing with his mouth and not with his nose with a nasal cannula was. I asked nursing to get full set of vitals. I turned up his oxygen to 10 L to provide him with more oxygen. His pulse ox saturation was found to be at 85% and hence I called a rapid response immediately. We placed him on simple mask and his oxygenation improved to greater than 95%. He continued to be restless, agitated and did not sit still- nursing had to hold his hands down as he was shaking and trying to get out of bed. We were not able to get a appropriate blood pressure reading. His telemetry box was reading a heart rate greater than 150 bpm. I checked patient's breathing and it was shallow and fast. He was able to answer my questions as I told him to take deep breaths and try to stay calm. He told me his back is hurting. I told nursing to get manual blood pressure readings but they were not able to get a good readying. Dopplers were brought out to try and assess for blood flow and then try manual blood pressure readings. At this time since we were not able to get a reading I ordered stat labs-ABG, CBC, BMP, mag, troponin, chest x-ray and CT head w/o contrast. ABG and blood drawn. Per nursing we were unable to get a manual blood pressure and hence I felt that he was hypotensive and I told nursing to open a 500 cc bolus of normal saline and this was started. My greatest concern was a intracranial hemorrhage since he is on Eliquis and he did hit his head. Unfortunately he was not stable to transfer down to CT to lay still for CAT scan-nor do we have established appropriate vitals to transfer him down. I gave him a 1mg IV morphine push stat as he was restless- tachycardic and tachypnic. I had also asked nursing to call his immediately after rapid response was called. Nursing was unable to get in touch with his but she did show up as we are trying to stabilize patient. Radiology techs came to do his chest xray and i stepped out to talk to his who had just arrived on scene. Patient was more calm and was able to go through with the Xray- Spoke with his about him and the fact that he had fallen. immediately started to cry and told me that he has fallen multiple times at home. She tells me that he had a long discussion with his doctor about the use of blood thinner and falling- tells me "he's so stubborn and won't listen to anyone". tells me he had fallen at home many times last year. Up until this point patient was alert and was responding to my commands. He even followed my finger with his eyes and his extraocular movements were intact. He was still following commands and answering my questions up until chest xray was done. Then I was called back into the room immediately, when Xray was done, by nursing that patient is no longer following commands and his pupils are fixed. I reevaluated the patient again and at this point he is no longer responsive nor is he following commands. I spoke to his that it is my assumption that patient has sustained a trauma to the head which has lead to most likely an intracranial hemorrhage. I told her that we have to quickly move him out into the ICU and most likely transfer him to a higher level of care but this will have a very poor prognosis. tells me that he would not want to be on any life support machine nor would he want any heroic measures. She tells me not to stop and discontinue with further interventions at this time. At this time we are unable to palpate his pulses and I order another IV with open bolus but tells me to stop. She tells me to make him as comfortable as possible as patient started to have shallow respiration with use of accessory muscles and increased work of breathing. tells me that she has seen her family members with respiratory distress and she tells me "I do not want my to suffer, please give him something to help". I explained to her that her will without any intervention or further evaluation and she tells me she understands. She tells me again that her would not want any heroic measures and that he has been stubborn and had fallen multiple times and she knew this would happen one day. I ask her if she would like me to give her morphine so he can breath easier- she tells me to give him anything to keep him from being in pain and distress. At this time patient is made comfort care. At this point I ordered nurses to withdraw care but leave the simple mask with oxygen as his had requested. Per 's request I ordered 2 mg of IV morphine. Within minutes patients HR dropped and he went into asytole. Patient was found to be breathless, absent heart sounds, pulseless, asystole on tele, pupils are fixed and dilated. Patient did not respond to verbal or physical stimuli. Patient pronounced at 12:36pm. Family at bedside.
== END 2018-04-13 15:23 | disposition left against medical advice (07) | DRG 871 ==
LOC: ER 18:09 → EH 20:30 → 3S 04-09 13:57
PROVIDERS: ADMIT Emergency Medicine; ATTEND Emergency Medicine
PROC: 5A09357 Assistance with Respiratory Ventilation, Less than 24 Consecutive Hours, Continuous Positive Airway Pressure (ICD-10-PCS; principal; 2018-04-08)
PROC: 3E0F3GC Introduction of Other Therapeutic Substance into Respiratory Tract, Percutaneous Approach (ICD-10-PCS; 2018-04-08)
DX: A41.89 Other specified sepsis (principal); J96.21 Acute and chronic respiratory failure with hypoxia; I50.33 Acute on chronic diastolic (congestive) heart failure; N39.0 Urinary tract infection, site not specified; E87.1 Hypo-osmolality and hyponatremia; Z99.81 Dependence on supplemental oxygen; J44.9 Chronic obstructive pulmonary disease, unspecified; I48.91 Unspecified atrial fibrillation; Z51.5 Encounter for palliative care; I11.0 Hypertensive heart disease with heart failure; E11.9 Type 2 diabetes mellitus without complications; R63.0 Anorexia; B96.89 Other specified bacterial agents as the cause of diseases classified elsewhere; Z66 Do not resuscitate; E78.5 Hyperlipidemia, unspecified; E03.9 Hypothyroidism, unspecified; K21.9 Gastro-esophageal reflux disease without esophagitis; M19.90 Unspecified osteoarthritis, unspecified site; F32.9 Major depressive disorder, single episode, unspecified; F43.10 Post-traumatic stress disorder, unspecified; M54.9 Dorsalgia, unspecified; G47.33 Obstructive sleep apnea (adult) (pediatric); I25.10 Atherosclerotic heart disease of native coronary artery without angina pectoris; W19.XXXA Unspecified fall, initial encounter; Y92.231 Patient bathroom in hospital as the place of occurrence of the external cause; Z87.891 Personal history of nicotine dependence; Z95.0 Presence of cardiac pacemaker; Z85.46 Personal history of malignant neoplasm of prostate; Z87.01 Personal history of pneumonia (recurrent); Z91.81 History of falling
CPT/HCPCS: 36415; 36600; 71045; 74176; 80048; 80053; 80061; 81001; 82550; 82553; 82803; 82962; 83036; 83605; 83735; 83880; 84439; 84443; 84481; 84484; 85025; 85027; 85610; 87040; 87077; 87086; 93005; 93010; 93306; 94660; 96365; 96367; 96375; 96376; 99291; J0456; J0696; J1160; J1200; J1335; J1644; J1815; J1940; J1956; J2270; J2405; J2920; J2930; J3490; J7030